=== PATIENT | male | born 1955 | race Caucasian/White ===

== ENCOUNTER → 2018-03-26 17:57 | Outpatient (CLI) | payer OTHER, SELFPAY ==
--- NOTE | 2018-03-26 18:00 | DI.RAD.S_ITS ---
PROCEDURE: XR CHEST 2V INDICATIONS: cough TECHNIQUE: 2 views of the chest were acquired. COMPARISON: [facility], , CHEST 1 VIEW, 01/22/2017, 14:40. FINDINGS: Surgical changes and devices: None. Lungs and pleura: No pleural effusions or pneumothorax. Lungs are clear. Mediastinum: Mediastinal contours are normal. Heart size is normal. Bones and chest wall: No suspicious bony abnormalities. Soft tissues appear unremarkable. IMPRESSION: No acute cardiopulmonary disease process. Dictated by: Toma Lezama MD, PhD on 03/26/2018 at 18:29 Approved by: Toma Lezama MD, PhD on 03/26/2018 at 18:30
== END ==
PROVIDERS: Family Provider Family Medicine; PCP Family Medicine; Visit Provider Physician Assistant
DX: R05 Cough (principal); R68.89 Other general symptoms and signs
CPT/HCPCS: 71046; 87400

== ENCOUNTER → 2018-03-26 18:00 | Outpatient (CLI) | payer OTHER, SELFPAY ==
[2018-03-26 19:02] LABS: Influenza A and B by PCR Rapid Negative (Negative)
== END ==
PROVIDERS: Family Provider Family Medicine; PCP Family Medicine; Visit Provider Physician Assistant
DX: R68.89 Other general symptoms and signs (principal)
CPT/HCPCS: 87400

== ENCOUNTER → 2018-05-28 14:06 | Outpatient (CLI) | payer OTHER, SELFPAY ==
[2018-05-28 14:41] LABS: Hematocrit 45.6 % (41-53); Hemoglobin 15.7 g/dL (13.5-17.5)
[2018-05-31 01:30] LABS: Albumin 4.5 g/dL (3.6-5.1); Sex Hormone Binding Globulin 27 nmol/L (22-77); Testosterone, Bioavailable 43.9 ng/dL (110.0-575.0); Testosterone, Total 151 ng/dL (250-1100); Testosterone,Free 21.3 pg/mL (46.0-224.0)
== END ==
PROVIDERS: Visit Provider Student in an Organized Health Care Education/Training Program
DX: Z79.890 Hormone replacement therapy (principal); E29.1 Testicular hypofunction
CPT/HCPCS: 36415; 82040; 84270; 84403; 85014; 85018

== ENCOUNTER → 2018-07-26 12:40 | Outpatient (CLI) | payer OTHER, SELFPAY ==
[2018-07-26 13:48] LABS: Vitamin D 25 Hydroxy (D3) 20.9 ng/mL (30.0-100.0)
[2018-07-30 18:33] LABS: Testosterone Total 622 ng/dL (250-1100)
== END ==
PROVIDERS: Family Provider Family Medicine; PCP Student in an Organized Health Care Education/Training Program; Visit Provider Student in an Organized Health Care Education/Training Program
DX: E29.1 Testicular hypofunction (principal)
CPT/HCPCS: 36415; 82306; 84402; 84403

== ENCOUNTER → 2019-01-20 10:30 | Outpatient (CLI) | payer OTHER, SELFPAY ==
--- NOTE | 2019-01-20 10:31 | DI.ECHO.S_ITS ---
[facility] +---------+ : : [address] : [place] : : : : [id number] : : : : Phone: [phone]+ Echocardiogram Report + + :Name: PHILIP CANDELARIO Study Date: 01/20/2019 Height: 73 in : :[facility] Weight: 400 lb: : Gender: Male BSA: 2.9 m2 : :: 1955 Age: 63 yrs : :Reason For Study: Aortic, Ascending Aneurysm : : Performed By: Regine Mcwilliams : :Referring: GISELLE HERRERA : + + Interpretation Summary The left ventricle is mildly dilated. Left ventricular systolic function is normal. The ejection fraction is estimated to be 55-60%. There are no obvious focal wall motion abnormalities noted but poor endocardial definition reduces the sensitivity for the detection of such. The right ventricle is mildly dilated. The right ventricular systolic function is normal. The right ventricular systolic pressure is estimated to be at least 25 mmHg based on an estimated right atrial pressure of 3 mm Hg. The left atrium is moderately dilated. The right atrium is moderately dilated. There is no significant valvular heart disease. The aortic root is mildly dilated. The ascending aorta is moderately enlarged. The aortic arch is moderately enlarged. The arotic root is unchanged at 4.0 cm. The ascending aorta has increased in size from 4.2 cm to 4.7 cm. Prior exam was done on 07-30-14. Procedure: A two-dimensional transthoracic echocardiogram with color flow and Doppler was performed. The study quality was technically difficult. Comparison is made with the echocardiogram of 07-30-14. 1.5 cc of Definity contrast was used to improve image quality. The patient was in atrial fibrillation with heart rates between 72-88 bpm during the exam. Left Ventricle: The left ventricle is mildly dilated. There is normal left ventricular wall thickness. Left ventricular systolic function is normal. The ejection fraction is estimated to be 55-60%. There are no obvious focal wall motion abnormalities noted but poor endocardial definition reduces the sensitivity for the detection of such. Diastolic function could not be accurately assessed due to atrial fibrillation. Right Ventricle: The right ventricle is mildly dilated. The right ventricular systolic function is normal. Atria: The left atrium is moderately dilated. The right atrium is moderately dilated. The interatrial septum is intact with no evidence for an atrial septal defect. Mitral Valve: The mitral valve leaflets appear mildly thickened, but open well. There is trace mitral regurgitation. Aortic Valve: The aortic valve opens well. No aortic regurgitation is present. Tricuspid Valve: The tricuspid valve is normal in structure and function. There is a trace or physiologic amount of tricuspid regurgitation. The right ventricular systolic pressure is estimated to be at least 25 mmHg based on an estimated right atrial pressure of 3 mm Hg. Pulmonic Valve: The pulmonic valve is not well seen, but is grossly normal. There is no pulmonic valvular regurgitation. There is no significant valvular heart disease. Great Vessels: The aortic root is mildly dilated. The ascending aorta is moderately enlarged. The aortic arch is moderately enlarged. The arotic root is unchanged at 4.0 cm. The ascending aorta has increased in size from 4.2 cm to 4.7 cm. Prior exam was done on 07-30-14. The IVC is of normal diameter and collapses greater than 50% with a sniff. This suggests a low right atrial pressure of 3 mm Hg. Pericardium/ Pleura There is no pericardial effusion. There is no pleural effusion. MMode/2D Measurements & Calculations LVIDd: 5.8 cm Ao root diam: 4.0 cm LVIDs: 3.9 cm Aortic Jxn: 3.6 cm FS: 31.6 % asc Aorta Diam: 4.7 cm EPSS: 0.67 cm Ao Arch Diam (Prox Trans): 4.1 cm IVSd: 1.1 cm LVPWd: 1.0 cm LV garza. diameter/BSA (cm/m^2): 2.0 LV sys. diameter/BSA (cm/m^2): 1.4 LA dimension: 5.4 cm RA long axis: 6.5 cm LA A2 area: 33.6 cm2 RA area: 31.3 cm2 LA A4 area: 31.5 cm2 RA vol: 129.3 ml LA length (vol): 7.0 cm RA : 44.8 ml/m2 LA vol: 127.3 ml IVC diam: 1.8 cm LA vol index: 44.1 ml/m2 RVDd major: 7.2 cm RVD1 (basal): 4.5 cm RVD2 (mid): 3.4 cm Doppler Measurements & Calculations Ao V2 max: 99.9 cm/sec MV P1/2t: 64.0 msec Ao V2 mean: 65.9 cm/sec Ao max P.0 mmHg Ao mean P.1 mmHg Ao V2 VTI: 20.1 cm TR max dorian: 235.2 cm/sec MV V2 mean: 56.5 cm/sec TR max P.1 mmHg MV mean P.6 mmHg PA V2 max: 92.2 cm/sec MV V2 VTI: 15.7 cm PA V2 mean: 59.9 cm/sec PA mean P.7 mmHg PA Accel Time: 0.18 sec MV /2t max dorian: 92.3 cm/sec MVA(P1/2t): 3.4 cm2 Reading Physician:06:51 PM
[2019-01-20 15:19] LABS: Hemoglobin A1C% w Est Avg Glu 5.2 % (4.0-6.0)
[2019-01-20 15:20] LABS: Alanine Aminotransferase 60 IU/L (21-72); Albumin 4.7 g/dL (3.5-5.0); Alkaline Phosphatase 91 U/L (38-126); Aspartate Aminotransferase 44 IU/L (17-59); BUN Creatinine Ratio 19.1 (6-22); Bilirubin Direct 0.2 mg/dL (0.0-0.4); Bilirubin Total 3.1 mg/dL (0.2-1.3); Blood Urea Nitrogen 21 mg/dL (9-20); Calcium 9.7 mg/dL (8.4-10.2); Carbon Dioxide 26 mmol/L (22-32); Chloride 103 mmol/L (98-107); Cholesterol 97 mg/dL (140-199); Estimated Glomerular Filt Rate > 60.0 mL/min (>60); Globulin 2.4 g/dL (1.7-4.1); Glucose 97 mg/dL (80-110); HDL Cholesterol 25 mg/dL (40-60); HEMOLYSIS < 15 (0-50); LDL Cholesterol Calculated 29 mg/dL (<100); Potassium 4.9 mmol/L (3.4-5.1); Sodium 142 mmol/L (137-145); Total Protein 7.1 g/dL (6.3-8.2); Triglycerides 213 mg/dL (35-150)
[2019-01-20 15:27] LABS: Prealbumin 27.1 mg/dL (17.6-36.0)
[2019-01-20 15:48] LABS: Vitamin D 25 Hydroxy (D3) 22.9 ng/mL (30.0-100.0)
== END ==
PROVIDERS: PCP Student in an Organized Health Care Education/Training Program; Visit Provider Student in an Organized Health Care Education/Training Program
DX: I71.2 Thoracic aortic aneurysm, without rupture (principal); E66.01 Morbid (severe) obesity due to excess calories; E80.6 Other disorders of bilirubin metabolism; I10 Essential (primary) hypertension; I50.30 Unspecified diastolic (congestive) heart failure; E55.9 Vitamin D deficiency, unspecified; E78.00 Pure hypercholesterolemia, unspecified; I25.10 Atherosclerotic heart disease of native coronary artery without angina pectoris
CPT/HCPCS: 36415; 80053; 80061; 82248; 82306; 83036; 84134; 93306; Q9957

== ENCOUNTER → 2019-01-29 11:50 | Outpatient (CLI) | payer OTHER, SELFPAY ==
--- NOTE | 2019-01-29 11:54 | DIET.PN ---
Addendum entered by Mary Brady 02/04/19 17:00: Morbid obesity r/t emotional eating aeb BMI 60, accelerated wt gain associated c times of stress (family , injury), elevated triglycerides (213), and hypertension. Original Note: Dietary Progress Note Assessment: 63y M requesting help with weight loss. [employer] reccs high fat, high pro diet limiting carbs and sugar, has anyerusim and doesn't want to . Cannot get good picture of heart due to weight. Pt has been seeing natural medicine doctor on [place] which is motivating him to seek drapery counselor with a dietitian to reduce inflammation and lose weight. Not interested in bariatric surgery. Whole family is bigger in size. Admits to eating candy bars, bored/emotional/depressed related eating with added barrier of limited mobility. Drastically changed diet 1mo ago reflected below: HT: 6'1 WT: 455# Wt Hx: in 180-220#, 90s 280#, 1999s 300#, 2014 had cancer 350#, 2016 hurt foot, blood clot, stroke, heart attack BMI: 60.0 Labs: cholesterol low, Triglycerides 213 (H), Vitamin D 22 (L) Usual intake past month: 5:30-6am wakes B: cup coffee black, a couple eggs w an avocado (or 1.5 c instant oatmeal, brown sugar or fruit-berries, tsp butter) L (1230): cooks self for 100 servings at [facility], okayed by RD- 4oz lemon pepper cod, yam c butter and brown sugar, mixed veg, sliced apples D (6-7): Dinner looks like lunch per meals [employer] [place] in evening Some emotional eating, r/t depression and passing away. using [employer] for food tracking. Tries to stick to 2,000kcal. Interventions: Encouraged pts new dietary changes. Recc pt double veg portions but otherwise keep things the same for now since changes were so recent. Discussed inflammation and the anti-inflammatory diet. Pt will start using more anti-inflammatory herbs and spices in cooking, increase vegetable intake, focus on healthy fats. Discussed hunger/satiety scale: pt took scale with and will assess hunger levels, eating when a 3 and stopping when a 7. Pt will track foods and f/u c RD in 1mo to reassess and continue plan. Monitoring/Evaluations: monitor wt, continue problem solving barriers, work on physical activity plan
== END ==
PROVIDERS: PCP Student in an Organized Health Care Education/Training Program; Visit Provider Student in an Organized Health Care Education/Training Program
DX: E66.01 Morbid (severe) obesity due to excess calories (principal); Z68.44 Body mass index [BMI] 60.0-69.9, adult; I10 Essential (primary) hypertension; E78.5 Hyperlipidemia, unspecified
CPT/HCPCS: 97802

== ENCOUNTER → 2019-08-19 14:34 | Outpatient (CLI) | payer OTHER, SELFPAY ==
[2019-08-19 16:36] LABS: BUN Creatinine Ratio 29.8 (6-22); Blood Urea Nitrogen 25 mg/dL (9-20); Calcium 9.3 mg/dL (8.4-10.2); Carbon Dioxide 20 mmol/L (22-32); Chloride 107 mmol/L (98-107); Cholesterol 105 mg/dL (140-199); Estimated Glomerular Filt Rate > 60.0 mL/min (>60); Glucose 79 mg/dL (80-110); HDL Cholesterol 25 mg/dL (40-60); HEMOLYSIS < 15 (0-50); LDL Cholesterol Calculated 37 mg/dL (<100); Potassium 4.8 mmol/L (3.4-5.1); Sodium 137 mmol/L (137-145); Triglycerides 213 mg/dL (35-150)
[2019-08-19 16:46] LABS: Hemoglobin A1C% w Est Avg Glu 5.5 % (4.0-6.0)
[2019-08-19 17:05] LABS: TSH w/ Reflex to FT4 2.52 uIU/mL (0.47-4.68)
[2019-08-19 17:17] LABS: Vitamin D 25 Hydroxy (D3) 21.3 ng/mL (30.0-100.0)
== END ==
PROVIDERS: PCP Student in an Organized Health Care Education/Training Program; Referring Provider Student in an Organized Health Care Education/Training Program; Visit Provider Student in an Organized Health Care Education/Training Program
DX: E55.9 Vitamin D deficiency, unspecified (principal); E66.01 Morbid (severe) obesity due to excess calories; I10 Essential (primary) hypertension; I50.30 Unspecified diastolic (congestive) heart failure; R63.5 Abnormal weight gain
CPT/HCPCS: 36415; 80048; 80061; 82306; 83036; 84443

== ENCOUNTER → 2019-08-20 10:20 | Outpatient (CLI) | payer OTHER, SELFPAY ==
[2019-08-20 11:50] LABS: Cortisol Random 0.79 ug/dL
== END ==
PROVIDERS: PCP Student in an Organized Health Care Education/Training Program; Referring Provider Student in an Organized Health Care Education/Training Program; Visit Provider Student in an Organized Health Care Education/Training Program
DX: E88.1 Lipodystrophy, not elsewhere classified (principal)
CPT/HCPCS: 36415; 82533

== ENCOUNTER → 2020-02-03 13:20 | Outpatient (CLI) | payer OTHER, SELFPAY ==
--- NOTE | 2020-02-03 13:30 | DI.ECHO.S_ITS ---
Echocardiogram Report + + :Name: PHILIP CANDELARIO Study Date: 02/03/2020 Height: 73 in : :[facility] Weight: 490 lb : : Gender: Male BSA: 3.1 m2 : :: 1955 Age: 64 yrs BP: 153/102 mmHg: :Reason For Study: SHORTNESS OF BREATH : : Performed By: Baylee Rico : :Referring: JOHANNA MILLAN : + + Interpretation Summary Left ventricular ejection fraction is estimated to be 60 +/- 5%. Ejection fraction has not changed. The left ventricle is grossly normal size. The right ventricle is mildly dilated. The right ventricular systolic function is normal. Pulmonary artery pressures cannot be estimated because of the lack of a measurable TR jet velocity. The left atrium is mildly dilated. Right atrial size is normal. There is no significant valvular heart disease. The aortic root is mildly dilated. The ascending aorta is moderate-severely enlarged and has slightly increased since prior study. The aortic arch is moderately enlarged. Procedure: A two-dimensional transthoracic echocardiogram with color flow and Doppler was performed. The study quality was technically adequate. Comparison is made with the echocardiogram of 01/20/2019. A contrast injection of Definity was performed to improve assessment of LV function. Contrast was injected into an intravenous site in the right arm. The patient was in atrial fibrillation with heart rates between 91-107 bpm during the exam. Left Ventricle: There is mild concentric left ventricular hypertrophy. The left ventricle is grossly normal size. Left ventricular ejection fraction is estimated to be 60 +/- 5%. Diastolic function could not be accurately assessed due to atrial fibrillation. Right Ventricle: The right ventricle is mildly dilated. The right ventricular systolic function is normal. Atria: The left atrium is mildly dilated. Right atrial size is normal. There is no Doppler evidence for an interatrial shunt. Mitral Valve: The mitral valve is normal in structure and function. There is no mitral regurgitation noted. Aortic Valve: The aortic valve is trileaflet. There is no aortic valve stenosis. No aortic regurgitation is present. Tricuspid Valve: The tricuspid valve is not well visualized, but is grossly normal. There is a trace or physiologic amount of tricuspid regurgitation. Pulmonary artery pressures cannot be estimated because of the lack of a measurable TR jet velocity. Pulmonic Valve: The pulmonic valve is not well seen, but is grossly normal. There is no pulmonic valvular regurgitation. There is no significant valvular heart disease. Great Vessels: The aortic root is mildly dilated. The ascending aorta is moderate-severely enlarged. The aortic arch is moderately enlarged. The inferior vena cava was not visualized. Pericardium/ Pleura There is no pericardial effusion. There is no pleural effusion. MMode/2D Measurements & Calculations LVIDd: 5.4 cm LVOT diam: 2.5 cm LVIDs: 3.8 cm Ao root diam: 4.0 cm FS: 29.2 % asc Aorta Diam: 5.0 cm EPSS: 0.97 cm Ao Arch Diam (Prox Trans): 3.9 cm IVSd: 1.1 cm LVPWd: 1.2 cm LV garza. diameter/BSA (cm/m^2): 1.7 LV sys. diameter/BSA (cm/m^2): 1.2 LA A2 area: 28.1 cm2 RA long axis: 6.0 cm LA A4 area: 30.2 cm2 RA area: 24.0 cm2 LA length (vol): 6.6 cm RA vol: 82.2 ml LA vol: 109.3 ml RA : 26.1 ml/m2 LA vol index: 34.7 ml/m2 RVD1 (basal): 4.3 cm TAPSE: 2.3 cm Doppler Measurements & Calculations Ao V2 max: 114.6 cm/sec LVOT Max Geovanni: 91.3 cm/sec Ao V2 mean: 82.9 cm/sec LV V1 max P.3 mmHg Ao max P.3 mmHg LV V1 VTI: 16.5 cm Ao mean P.0 mmHg NILESH(I,D): 4.4 cm2 Ao V2 VTI: 18.7 cm NILESH(V,D): 4.0 cm2 sev ratio: 0.88 NILESH indexed to BSA (cm^2/m^2): 1.4 MV E max geovanni: 98.9 cm/sec PA pr(Accel): 27.6 mmHg MV A max geovanni: 1.2 cm/sec MV E/A: 84.7 Med Peak E' Geovanni: 11.1 cm/sec E/E' med: 8.9 Lat Peak E' Geovanni: 11.3 cm/sec E/E' lat: 8.8 E/e' average: 8.9 MV dec time: 0.19 sec SV(LVOT): 83.0 ml Reading Physician:04:00 PM
== END ==
PROVIDERS: PCP Student in an Organized Health Care Education/Training Program; Referring Provider Internal Medicine Cardiovascular Disease; Visit Provider Internal Medicine Cardiovascular Disease
DX: I77.810 Thoracic aortic ectasia (principal); R06.02 Shortness of breath
CPT/HCPCS: C8929; Q9957

== ENCOUNTER → 2020-03-15 12:06 | Outpatient (CLI) | payer OTHER, SELFPAY ==
[2020-03-15 14:36] LABS: Add Manual Diff / Slide Review NO; Basophils Absolute Auto 100 /uL (0-100); Basophils Percent Auto 0.6 % (0-2); Eosinophils Absolute Auto 200 /uL (0-450); Eosinophils Percent Auto 1.9 % (2-4); Hematocrit 55.8 % (41-53); Hemoglobin 18.2 g/dL (13.5-17.5); Lymphocytes Absolute Auto 1500 /uL (1100-4500); Lymphocytes Percent Auto 13.5 % (25-40); Mean Corpuscular HGB Conc 32.6 % (30-36); Mean Corpuscular Hemoglobin 28.5 PG (26-34); Mean Corpuscular Volume 87.6 fL (80-100); Monocytes Absolute Auto 1200 /uL (0-900); Monocytes Percent Auto 10.6 % (3-14); Neutrophils Absolute Auto 8300 /uL (1500-7000); Neutrophils Percent Auto 73.4 % (50-75); Platelet Count 233 X10^3/uL (150-400); Red Blood Cell Count 6.37 X10^6/uL (4.5-5.9); Red Cell Distribution Width 16.2 % (11.6-14.8); White Blood Cell Count 11.3 X10^3/uL (4.5-11.0)
[2020-03-15 14:43] LABS: Prothrombin Time 11.5 SECONDS (10.1-12.7)
[2020-03-15 14:45] LABS: PTT Partial Thromboplastin Tim 32 SECONDS (26.4-36.2)
[2020-03-15 14:57] LABS: Hemoglobin A1C% w Est Avg Glu 5.6 % (4.0-6.0)
[2020-03-15 14:58] LABS: Alanine Aminotransferase 67 IU/L (<50); Albumin 4.7 g/dL (3.5-5.0); Albumin Globulin Ratio 1.7 (1.0-2.8); Alkaline Phosphatase 114 U/L (38-126); Aspartate Aminotransferase 59 IU/L (17-59); BUN Creatinine Ratio 22.5 (6-22); Bilirubin Total 4.8 mg/dL (0.2-1.3); Blood Urea Nitrogen 23 mg/dL (9-20); Calcium 9.2 mg/dL (8.4-10.2); Carbon Dioxide 22 mmol/L (22-32); Chloride 105 mmol/L (98-107); Cholesterol 105 mg/dL (140-199); Estimated Glomerular Filt Rate > 60.0 mL/min (>60); Globulin 2.8 g/dL (1.7-4.1); Glucose 83 mg/dL (80-110); HDL Cholesterol 25 mg/dL (40-60); HEMOLYSIS 33 (0-50); LDL Cholesterol Calculated 33 mg/dL (<100); Potassium 4.8 mmol/L (3.4-5.1); Sodium 137 mmol/L (137-145); Total Protein 7.5 g/dL (6.3-8.2); Triglycerides 236 mg/dL (35-150)
[2020-03-15 15:24] LABS: Iron 145 ug/dL (49-181)
[2020-03-15 15:28] LABS: Ferritin 31 ng/mL (18-464)
[2020-03-15 15:34] LABS: Total Iron Binding Capacity 457 ug/dL (261-462)
[2020-03-15 15:44] LABS: Free T3, Triiodothyronine Free 3.16 pg/mL (2.77-5.27)
[2020-03-15 15:58] LABS: Folate 18.9 ng/mL (2.76-20.0); Thyroid Stimulating Hormone 2.81 uIU/mL (0.47-4.68); Vitamin B12 483 pg/mL (239-931)
[2020-03-15 17:05] LABS: Vitamin D 25 Hydroxy (D3) 26.7 ng/mL (30.0-100.0)
[2020-03-18 17:08] LABS: Vitamin B1 240.9 nmol/L (66.5-200.0)
== END ==
PROVIDERS: PCP Student in an Organized Health Care Education/Training Program; Referring Provider Surgery; Visit Provider Surgery
DX: Z01.812 Encounter for preprocedural laboratory examination (principal); Z01.810 Encounter for preprocedural cardiovascular examination; E63.9 Nutritional deficiency, unspecified; E55.9 Vitamin D deficiency, unspecified; E46 Unspecified protein-calorie malnutrition
CPT/HCPCS: 36415; 80053; 80061; 82306; 82607; 82728; 82746; 83036; 83540; 83550; 84425; 84443; 84481; 85025; 85610; 85730

== ENCOUNTER → 2020-07-27 12:54 | Outpatient (CLI) | payer OTHER, SELFPAY ==
[2020-07-27 13:41] LABS: Alanine Aminotransferase 49 IU/L (<50); Albumin 4.4 g/dL (3.5-5.0); Albumin Globulin Ratio 1.6 (1.0-2.8); Alkaline Phosphatase 96 U/L (38-126); Aspartate Aminotransferase 38 IU/L (17-59); BUN Creatinine Ratio 16.3 (6-22); Bilirubin Total 3.5 mg/dL (0.2-1.3); Blood Urea Nitrogen 14 mg/dL (9-20); Calcium 9.4 mg/dL (8.4-10.2); Carbon Dioxide 27 mmol/L (22-32); Chloride 101 mmol/L (98-107); Estimated Glomerular Filt Rate > 60.0 mL/min (>60); Globulin 2.7 g/dL (1.7-4.1); Glucose 95 mg/dL (80-110); HEMOLYSIS < 15 (0-50); Potassium 4.3 mmol/L (3.4-5.1); Sodium 136 mmol/L (137-145); Total Protein 7.1 g/dL (6.3-8.2)
== END ==
PROVIDERS: PCP Student in an Organized Health Care Education/Training Program; Referring Provider Surgery; Visit Provider Surgery
DX: Z98.84 Bariatric surgery status (principal); K90.9 Intestinal malabsorption, unspecified
CPT/HCPCS: 36415; 80053

== ENCOUNTER → 2020-09-03 10:27 | Outpatient (CLI) | payer OTHER, SELFPAY ==
[2020-09-08 08:51] LABS: Heparin Anti Xa LMWH 0.93 IU/mL (.)
== END ==
PROVIDERS: PCP Student in an Organized Health Care Education/Training Program; Referring Provider Internal Medicine; Visit Provider Internal Medicine
DX: I82.90 Acute embolism and thrombosis of unspecified vein (principal)
CPT/HCPCS: 36415; 85520

== ENCOUNTER → 2020-09-10 13:06 | Outpatient (CLI) | payer OTHER, SELFPAY ==
[2020-09-14 02:50] LABS: Heparin Anti Xa LMWH 1.05 IU/mL (.)
== END ==
PROVIDERS: PCP Student in an Organized Health Care Education/Training Program; Referring Provider Internal Medicine; Visit Provider Internal Medicine
DX: I82.90 Acute embolism and thrombosis of unspecified vein (principal)
CPT/HCPCS: 36415; 85520

== ENCOUNTER → 2020-09-17 12:38 | Outpatient (CLI) | payer OTHER, SELFPAY | PROVIDERS: PCP Student in an Organized Health Care Education/Training Program; Referring Provider Internal Medicine; Visit Provider Internal Medicine | DX: I82.90 Acute embolism and thrombosis of unspecified vein (principal) | CPT/HCPCS: 36415; 85520 ==

== ENCOUNTER → 2020-09-24 12:33 | Outpatient (CLI) | payer OTHER, SELFPAY ==
[2020-09-28 18:36] LABS: Heparin Anti Xa LMWH 0.86 IU/mL (.)
== END ==
PROVIDERS: PCP Student in an Organized Health Care Education/Training Program; Referring Provider Internal Medicine; Visit Provider Internal Medicine
DX: I82.90 Acute embolism and thrombosis of unspecified vein (principal)
CPT/HCPCS: 36415; 85520

== ENCOUNTER → 2020-10-01 12:14 | Outpatient (CLI) | payer OTHER, SELFPAY ==
[2020-10-05 17:44] LABS: Heparin Anti Xa LMWH 0.64 IU/mL (.)
== END ==
PROVIDERS: PCP Student in an Organized Health Care Education/Training Program; Referring Provider Internal Medicine; Visit Provider Internal Medicine
DX: I82.90 Acute embolism and thrombosis of unspecified vein (principal)
CPT/HCPCS: 36415; 85520

== ENCOUNTER → 2020-10-08 12:14 | Outpatient (CLI) | payer OTHER, SELFPAY ==
[2020-10-13 15:04] LABS: Heparin Anti Xa LMWH 0.79 IU/mL (.)
== END ==
PROVIDERS: PCP Student in an Organized Health Care Education/Training Program; Referring Provider Internal Medicine; Visit Provider Internal Medicine
DX: I82.90 Acute embolism and thrombosis of unspecified vein (principal)
CPT/HCPCS: 36415; 85520

== ENCOUNTER → 2020-10-15 11:13 | Outpatient (CLI) | payer OTHER, SELFPAY ==
[2020-10-15 12:06] LABS: Alanine Aminotransferase 82 IU/L (<50); Albumin 4.5 g/dL (3.5-5.0); Albumin Globulin Ratio 1.9 (1.0-2.8); Alkaline Phosphatase 120 U/L (38-126); Aspartate Aminotransferase 55 IU/L (17-59); BUN Creatinine Ratio 31.8 (6-22); Blood Urea Nitrogen 21 mg/dL (9-20); Calcium 9.7 mg/dL (8.4-10.2); Carbon Dioxide 22 mmol/L (22-32); Chloride 107 mmol/L (98-107); Estimated Glomerular Filt Rate > 60.0 mL/min (>60); Globulin 2.4 g/dL (1.7-4.1); Glucose 111 mg/dL (80-110); HEMOLYSIS < 15 (0-50); Potassium 3.7 mmol/L (3.4-5.1); Sodium 139 mmol/L (137-145); Total Protein 6.9 g/dL (6.3-8.2)
== END ==
PROVIDERS: PCP Student in an Organized Health Care Education/Training Program; Referring Provider Surgery; Visit Provider Surgery
DX: K90.9 Intestinal malabsorption, unspecified (principal); Z98.84 Bariatric surgery status; I82.90 Acute embolism and thrombosis of unspecified vein
CPT/HCPCS: 36415; 80053; 85520

== ENCOUNTER → 2020-10-22 11:49 | Outpatient (CLI) | payer OTHER, SELFPAY | PROVIDERS: PCP Student in an Organized Health Care Education/Training Program; Referring Provider Internal Medicine; Visit Provider Internal Medicine | DX: I82.90 Acute embolism and thrombosis of unspecified vein (principal) | CPT/HCPCS: 36415; 85520 ==

== ENCOUNTER → 2020-11-17 14:19 | Outpatient (CLI) | payer OTHER, SELFPAY ==
[2020-11-21 11:04] LABS: Heparin Anti Xa LMWH 0.92 IU/mL (.)
== END ==
PROVIDERS: PCP Student in an Organized Health Care Education/Training Program; Referring Provider Internal Medicine; Visit Provider Internal Medicine
DX: I82.90 Acute embolism and thrombosis of unspecified vein (principal)
CPT/HCPCS: 36415; 85520

== ENCOUNTER → 2020-11-23 15:29 | Outpatient (CLI) | payer OTHER, SELFPAY ==
--- NOTE | 2020-11-23 15:31 | DI.RAD.S_ITS ---
PROCEDURE: XR SACRUM COCCYX MIN 2V INDICATIONS: Coccygeal pain after fall TECHNIQUE: 3 views of the sacrum and coccyx acquired. COMPARISON: None. FINDINGS: Bones: No fractures or dislocations. No suspicious bony lesions. Soft tissues: Visualized bowel gas pattern is normal. No suspicious soft tissue densities. IMPRESSION: No definite trauma found. MR scanning does provide a more accurate method for detecting bone bruising and nondisplaced fractures and could be performed if clinically warranted. Dictated by: Molina Farnsworth M.D. on 11/23/2020 at 16:16 Approved by: Molina Farnsworth M.D. on 11/23/2020 at 16:17
== END ==
PROVIDERS: PCP Student in an Organized Health Care Education/Training Program; Referring Provider Student in an Organized Health Care Education/Training Program; Visit Provider Student in an Organized Health Care Education/Training Program
DX: M53.3 Sacrococcygeal disorders, not elsewhere classified (principal); G89.29 Other chronic pain
CPT/HCPCS: 72220

== ENCOUNTER → 2020-12-16 15:25 | Outpatient (CLI) | payer OTHER, SELFPAY ==
[2020-12-20 01:37] LABS: Heparin Anti Xa LMWH 0.78 IU/mL (.)
== END ==
PROVIDERS: Referring Provider Internal Medicine; Visit Provider Internal Medicine
DX: I82.90 Acute embolism and thrombosis of unspecified vein (principal)
CPT/HCPCS: 36415; 85520

== ENCOUNTER → 2020-12-22 11:05 | Outpatient (CLI) | payer OTHER, SELFPAY ==
[2021-01-03 10:40] LABS: Testosterone Free 11.59 ng/dL (5.00-21.00); Testosterone Total 143.1 ng/dL (264.0-916.0)
== END ==
PROVIDERS: PCP Student in an Organized Health Care Education/Training Program; Referring Provider Student in an Organized Health Care Education/Training Program; Visit Provider Student in an Organized Health Care Education/Training Program
DX: E29.1 Testicular hypofunction (principal)
CPT/HCPCS: 36415; 84402; 84403

== ENCOUNTER → 2021-01-23 10:56 | Outpatient (CLI) | payer OTHER, SELFPAY ==
[2021-01-25 18:27] LABS: Heparin Anti Xa LMWH 0.88 IU/mL (.)
== END ==
PROVIDERS: PCP Student in an Organized Health Care Education/Training Program; Referring Provider Internal Medicine; Visit Provider Internal Medicine
DX: I82.90 Acute embolism and thrombosis of unspecified vein (principal)
CPT/HCPCS: 36415; 85520

== ENCOUNTER → 2021-02-25 10:21 | Outpatient (CLI) | payer OTHER, SELFPAY ==
[2021-02-25 11:17] LABS: Add Manual Diff / Slide Review NO; Basophils Absolute Auto 100 /uL (0-100); Basophils Percent Auto 1.4 % (0-2); Eosinophils Absolute Auto 100 /uL (0-450); Eosinophils Percent Auto 2.8 % (2-4); Hematocrit 29.4 % (41-53); Hemoglobin 9.4 g/dL (13.5-17.5); Lymphocytes Absolute Auto 1100 /uL (1100-4500); Lymphocytes Percent Auto 21.6 % (25-40); Mean Corpuscular HGB Conc 31.9 % (30-36); Mean Corpuscular Hemoglobin 24.1 PG (26-34); Mean Corpuscular Volume 75.6 fL (80-100); Monocytes Absolute Auto 500 /uL (0-900); Monocytes Percent Auto 8.9 % (3-14); Neutrophils Absolute Auto 3400 /uL (1500-7000); Neutrophils Percent Auto 65.3 % (50-75); Platelet Count 279 X10^3/uL (150-400); Red Blood Cell Count 3.89 X10^6/uL (4.5-5.9); Red Cell Distribution Width 17.2 % (11.6-14.8); White Blood Cell Count 5.2 X10^3/uL (4.5-11.0)
[2021-02-25 12:02] LABS: Alanine Aminotransferase 27 IU/L (<50); Albumin 4.2 g/dL (3.5-5.0); Alkaline Phosphatase 80 U/L (38-126); Aspartate Aminotransferase 26 IU/L (17-59); Bilirubin Total 2.9 mg/dL (0.2-1.3); Blood Urea Nitrogen 20 mg/dL (9-20); Calcium 9.1 mg/dL (8.4-10.2); Carbon Dioxide 24 mmol/L (22-32); Chloride 109 mmol/L (98-107); Cholesterol 93 mg/dL (140-199); Estimated Glomerular Filt Rate > 60.0 mL/min (>60); Globulin 2.1 g/dL (1.7-4.1); Glucose 93 mg/dL (80-110); HDL Cholesterol 33 mg/dL (40-60); HEMOLYSIS < 15 (0-50); LDL Cholesterol Calculated 38 mg/dL (<100); Potassium 4.3 mmol/L (3.4-5.1); Sodium 139 mmol/L (137-145); Total Protein 6.3 g/dL (6.3-8.2); Triglycerides 109 mg/dL (35-150)
[2021-02-25 12:04] LABS: Hemoglobin A1C% w Est Avg Glu 5.4 % (4.0-6.0)
[2021-02-25 12:12] LABS: Total Iron Binding Capacity 433 ug/dL (261-462)
[2021-02-25 12:22] LABS: Iron < 10 ug/dL (49-181)
[2021-02-25 12:23] LABS: Percent Iron Saturation < 2 % (20-50); Vitamin D 25 Hydroxy (D3) 34.5 ng/mL (30.0-100.0)
[2021-02-25 12:36] LABS: Ferritin 7 ng/mL (18-464)
[2021-02-25 13:07] LABS: Folate 4.9 ng/mL (2.76-20.0); Vitamin B12 332 pg/mL (239-931)
[2021-02-28 00:36] LABS: Vitamin B1 109.9 nmol/L (66.5-200.0)
== END ==
PROVIDERS: PCP Student in an Organized Health Care Education/Training Program; Referring Provider Surgery; Visit Provider Surgery
DX: E63.9 Nutritional deficiency, unspecified (principal); K90.9 Intestinal malabsorption, unspecified; Z98.84 Bariatric surgery status
CPT/HCPCS: 36415; 80053; 80061; 82306; 82607; 82728; 82746; 83036; 83540; 83550; 84425; 84443; 85025

== ENCOUNTER 2021-03-25 08:29 | Emergency (ER) | payer OTHER, SELFPAY ==
[2021-03-25] VITALS (10 sets, daily range): BP systolic 118–128; BP diastolic 66–81; PULSE 82–95; RESP 16–23; TEMP 36.5–36.9; O2SAT 97–100; BMI 47.5
--- NOTE | 2021-03-25 08:41 | DI.CT.S_ITS ---
PROCEDURE: CT KIDNEY URETER BLADDER (KUB) INDICATIONS: severe R flank TECHNIQUE: Axial sections were acquired from the lung bases to the pubic symphysis. Coronal and sagittal reformats were performed. For radiation dose reduction, the following was used: automated exposure control, adjustment of mA and/or kV according to patient size. COMPARISON: [facility], CT, ABD/PELVIS W/CON (PNL), 07/15/2014, 10:34. FINDINGS: Image quality: Excellent. Lung bases: Unremarkable. A small hiatal hernia is incidentally noted. Heart: No significant findings. URINARY: Right Kidney: No stones or hydronephrosis. Right Ureter: No hydroureter. Left Kidney: No stones or hydronephrosis. Left Ureter: No hydroureter. Bladder: Normal wall thickness. No stones. ABDOMEN: Liver: Unremarkable. Gallbladder: Apparent layering sludge can be seen within the gallbladder. Biliary ducts: Unremarkable. Pancreas: Unremarkable. Spleen: Unremarkable. Adrenal Glands: Unremarkable. Stomach and Bowel: Bariatric surgery can be seen. Generalized fatty stranding can be seen involving the central mesentery. No dilated loops of small bowel are seen. No significant colonic abnormality is seen. Peritoneum: No abnormal intraperitoneal fluid. No free air. Ventral Wall: A mild periumbilical hernia is seen, containing fat. Subcutaneous nodules can be seen involving the anterior lower abdominal wall. Abdominal Nodes: No enlarged retroperitoneal or mesenteric lymph nodes. Vessels: Aorta and inferior vena cava are normal in size. PELVIS: Pelvic Organs: Unremarkable. Pelvic Nodes: Unremarkable. Miscellaneous: There is a fat containing left inguinal hernia. Bones: Mild levoconvex scoliotic curvature is noted. Age-appropriate bony degenerative changes are seen. The gallbladder is collapsed at the time of this study, which limits its evaluation. IMPRESSION: Negative for stones or hydronephrosis. Generalized fatty stranding can be seen involving the central mesentery, which is likely related to chronic inflammatory change. Subcutaneous nodules can be seen involving the lower anterior abdominal wall. Incidental note is made of: Small hiatal hernia Bariatric surgery Fat containing periumbilical hernia Fat containing right inguinal hernia Dictated by: Juan Campos M.D. on 03/25/2021 at 8:35 Approved by: Juan Campos M.D. on 03/25/2021 at 8:38
[2021-03-25 09:00] LABS: Add Manual Diff / Slide Review NO; Basophils Absolute Auto 100 /uL (0-100); Basophils Percent Auto 1.3 % (0-2); Eosinophils Absolute Auto 100 /uL (0-450); Eosinophils Percent Auto 2.4 % (2-4); Hematocrit 29.5 % (41-53); Hemoglobin 9.5 g/dL (13.5-17.5); Lymphocytes Absolute Auto 1000 /uL (1100-4500); Lymphocytes Percent Auto 17.7 % (25-40); Mean Corpuscular HGB Conc 32.1 % (30-36); Mean Corpuscular Hemoglobin 22.1 PG (26-34); Mean Corpuscular Volume 68.9 fL (80-100); Monocytes Absolute Auto 600 /uL (0-900); Monocytes Percent Auto 10.8 % (3-14); Neutrophils Absolute Auto 3900 /uL (1500-7000); Neutrophils Percent Auto 67.8 % (50-75); Platelet Count 323 X10^3/uL (150-400); Red Blood Cell Count 4.29 X10^6/uL (4.5-5.9); Red Cell Distribution Width 21.1 % (11.6-14.8); White Blood Cell Count 5.7 X10^3/uL (4.5-11.0)
[2021-03-25 09:04] LABS: Prothrombin Time 11.7 SECONDS (10.1-12.7)
[2021-03-25 09:06] LABS: PTT Partial Thromboplastin Tim 36 SECONDS (26.4-36.2)
[2021-03-25 09:08] LABS: Alanine Aminotransferase 32 IU/L (<50); Albumin 4.2 g/dL (3.5-5.0); Albumin Globulin Ratio 1.9 (1.0-2.8); Alkaline Phosphatase 100 U/L (38-126); Aspartate Aminotransferase 32 IU/L (17-59); BUN Creatinine Ratio 20.5 (6-22); Bilirubin Total 2.9 mg/dL (0.2-1.3); Blood Urea Nitrogen 17 mg/dL (9-20); Calcium 8.9 mg/dL (8.4-10.2); Carbon Dioxide 21 mmol/L (22-32); Chloride 108 mmol/L (98-107); Estimated Glomerular Filt Rate > 60.0 mL/min (>60); Globulin 2.2 g/dL (1.7-4.1); Glucose 98 mg/dL (80-110); HEMOLYSIS < 15 (0-50); Potassium 4.2 mmol/L (3.4-5.1); Sodium 138 mmol/L (137-145); Total Protein 6.4 g/dL (6.3-8.2)
--- NOTE | 2021-03-25 09:17 | ED_ITS ---
HPI - Abdominal Pain General Chief Complaint: Abdominal Pain Stated Complaint: Poss kidney issues/blood clots. Sent by Dr Rodríguez Seen by Provider: 03/25/21 08:36 Source: patient Mode of arrival: Wheelchair Limitations: no limitations History of Present Illness HPI narrative: 65-year-old male nonsmoker with extensive medical history including intestinal cancer, prior clots, coronary artery disease, AAA, stroke presents with right flank pain that wraps around his right side that is been present for about the past 10 days. He does not remember how it started and denies any injury, heavy lifting or twisting. He states it is worse when he moves and improves with rest. He denies other symptoms such as numbness, t ingling or weakness. He denies any trouble with moving his bowels or urinary complaints such as dysuria, frequency or urgency. He always feels a bit short of breath and denies any change. He has had no chest pain, cough or relationship with breathing. He denies any medication change. His primary care provider thinks he has a kidney stone and is here for evaluation. Related Data Home Medications Medication Instructions Recorded Confirmed enoxaparin 100 mg/mL subcutaneous 100 mg SUBCUT BID ml 11/23/20 12/22/20 syringe Previous Rx's Medication Instructions Recorded ketoconazole 2 % topical cream 1 applictn TOP DAILY #30 gram 03/14/20 testosterone cypionate 200 mg/mL 200 mg IM Q2W #6 ml 03/29/20 intramuscular oil Oxygen #1 ea 04/04/20 atorvastatin 40 mg tablet 40 mg PO HS #90 tab 06/17/20 generic syringes #10 each 01/10/21 amoxicillin 875 mg-potassium 1 tab PO BID #10 tab 01/26/21 clavulanate 125 mg tablet (Augmentin) valsartan 320 mg tablet 320 mg PO QDAY #90 tab 02/13/21 metoprolol succinate 200 mg 200 mg PO DAILY #90 tab 02/16/21 tablet,extended release 24 hr cyclobenzaprine 10 mg tablet 10 mg PO TID PRN #14 tab 03/25/21 hydrocodone 5 mg-acetaminophen 325 1 tab PO Q4-6H PRN #10 tab 03/25/21 mg tablet Allergies Allergy/AdvReac Type Severity Reaction Status Date / Time adhesive [ADHESIVE] Allergy Severe REDNESS Verified 12/22/20 10:13 AND ITCHING latex Allergy Verified 03/25/21 08:57 ciprofloxacin AdvReac Unknown Aortic Verified 12/22/20 10:13 aneurysm Review of Systems Review of Systems Narrative: GENERAL: Denies chills, fatigue, malaise, fever, sweats. HEENT: Denies sinus pain, ear pain, sore throat, difficulty swallowing, dizziness. RESPIRATORY: Denies dyspnea, cough, wheezing, hemoptysis, sputum. CARDIOVASCULAR: Denies chest pain, palpitations, orthopnea, edema, GASTROINTESTINAL: Denies nausea, vomiting, abdominal pain, diarrhea, constipation, melena. : Denies dysuria, frequency, incontinence, hematuria, urinary retention. MUSCULOSKELETAL: denies weakness, joint pain, or bony pain SKIN: Denies rash, skin lesions, or other NEUROLOGIC: Denies weakness, headache, numbness, change in speech, confusion, seizures, incoordination. PSYCHIATRIC: No concerning psychosocial issues. 12 point review of systems is negative except for those stated above Patient History Medical History Ascending aortic aneurysm (01/29/17) Atrial fibrillation (Unknown) Carpal tunnel syndrome on both sides Coronary artery disease involving [place] coronary artery of [place] heart without angina pectoris (01/29/17) Diastolic congestive heart failure (01/29/17) Essential hypertension (08/04/15) Fatigue (08/04/15) Glaucoma (06/06/17) Herpes (Unknown) History of colon cancer (Unknown) History of malignant neoplasm of colon (08/04/15) History of stroke (01/29/17) Hyperlipemia (Unknown) Hypertension (Unknown) Left ankle pain (01/17/16) Left foot pain (01/17/16) Left wrist pain (01/17/16) Morbid obesity with BMI of 60.0-69.9, adult Obesity hypoventilation syndrome Obstructive sleep apnea syndrome (08/11/14) Paroxysmal atrial fibrillation (01/29/17) Primary osteoarthritis of left knee (08/04/15) Pure hypercholesterolemia (08/04/15) Right knee pain (01/17/16) Stroke (Unknown) Thrombus Work related injury Surgical History Hx of cardiac catheterization (01/2017) Hx of colectomy (07/2014) Family History Father No problems noted. Mother Cancer Social History Smoking Status: Never smoker alcohol intake: never substance use type: does not use Smoking Status: Never smoker Substance Use Type: does not use Exam Narrative Exam Narrative: GENERAL: [65 year old patient appears stated age. Well-developed patient, in moderate distress, obviously uncomfortable, moving slowly in requiring some assistance getting out of the wheelchair HEAD: Atraumatic. Normocephalic. EYES: Pupils equal round and reactive. Extraocular motions intact. No scleral icterus. No injection or drainage. ENT: Nose without bleeding, purulent drainage. Throat without erythema, tonsillar hypertrophy or exudate. Airway patent. NECK: Trachea midline. Non tender CARDIOVASCULAR: Regular rate and rhythm without murmurs, gallops, or rubs. RESPIRATORY: Clear to auscultation. Breath sounds equal bilaterally. No wheezes, rales, or rhonchi. GASTROINTESTINAL: Abdomen soft, non-tender, nondistended. EXTREMITIES: No edema or joint tenderness. BACK: Right posterior flank tender to palpation, no swelling, redness or erythema noted NEURO: AOx3. SKIN: No rash or erythema of visible areas Initial Vital Signs Initial Vital Signs: Vital Signs Pulse Rate 95 H 03/25/21 08:40 Blood Pressure 128/81 03/25/21 08:40 Pulse Oximetry 100 03/25/21 08:40 Course Orders Ordered: Discontinued Medications Lidocaine (Lidocaine Patch 1 Each Adh..Patch) 1 each TOP NOW ONE Stop: 03/25/21 11:22 Last Admin: 03/25/21 11:26 Dose: 1 each Documented by: FROY Lidocaine (Remove Lidocaine Patch) 1 each TOP BEDTIME CELE Vital Signs Vital signs: Vital Signs - 8 hr 03/25/21 08:40 03/25/21 08:57 03/25/21 09:00 Temperature 98.4 F Pulse Rate 95 H 89 86 Respiratory Rate 23 18 Blood Pressure 128/81 128/81 Pulse Oximetry 100 100 98 03/25/21 09:30 03/25/21 10:22 Temperature 97.7 F Pulse Rate 89 Respiratory Rate 19 Blood Pressure Pulse Oximetry 97 MDM - Abdominal Pain Lab Data Result diagrams: 03/25/21 08:45 03/25/21 08:45 Labs: Lab Results 03/25/21 03/25/21 03/25/21 Range/Units 08:45 08:45 08:45 WBC 5.7 (4.5-11.0) X10^3/uL RBC 4.29 L (4.5-5.9) X10^6/uL Hgb 9.5 L (13.5-17.5) g/dL Hct 29.5 L (41-53) % MCV 68.9 L (80-100) fL MCH 22.1 L (26-34) PG MCHC 32.1 (30-36) % RDW 21.1 H (11.6-14.8) % Plt Count 323 (150-400) X10^3/uL Neut % (Auto) 67.8 (50-75) % Lymph % (Auto) 17.7 L (25-40) % Iron % (Auto) 10.8 (3-14) % Eos % (Auto) 2.4 (2-4) % Baso % (Auto) 1.3 (0-2) % Neut # (Auto) 3900 (6713-9126) /uL Lymph # (Auto) 1000 L (0972-7845) /uL Iron # (Auto) 600 (0-900) /uL Eos # (Auto) 100 (0-450) /uL Baso # (Auto) 100 (0-100) /uL RBC Morphology Not Reportable Hypochromasia 1+ H Anisocytosis 2+ H Microcytosis 2+ H PT 11.7 (10.1-12.7) SECONDS INR 1.0 (0.9-1.3) APTT 36 (26.4-36.2) SECONDS Sodium 138 (137-145) mmol/L Potassium 4.2 (3.4-5.1) mmol/L Chloride 108 H (98-107) mmol/L Carbon Dioxide 21 L (22-32) mmol/L BUN 17 (9-20) mg/dL Creatinine 0.83 (0.66-1.25) mg/dL Estimated GFR > 60.0 (>60) mL/min BUN/Creatinine Ratio 20.5 (6-22) Glucose 98 (80-110) mg/dL Calcium 8.9 (8.4-10.2) mg/dL Total Bilirubin 2.9 H (0.2-1.3) mg/dL AST 32 (17-59) IU/L ALT 32 (<50) IU/L Alkaline Phosphatase 100 (38-126) U/L Total Protein 6.4 (6.3-8.2) g/dL Albumin 4.2 (3.5-5.0) g/dL Globulin 2.2 (1.7-4.1) g/dL Albumin/Globulin Ratio 1.9 (1.0-2.8) Point of care testing: Urine Dip Bedside Urine Glucose Negative Bedside Urine Bilirubin - Negative Bedside Urine Ketone - Negative Urine Specific [place] 1.015 Bedside Urine Occult Blood - Negative Bedside Urine pH 6.0 Bedside Urine Protein - Negative Bedside Urine Urobilinogen +/- 1mg Bedside Urine Nitrite - Negative Bedside Urine Leukocytes - Negative Esterase Imaging Data CT scan - abdomen/pelvis: Radiologist's Impression: Cecilio Miles??65??M??1955 ? Allergy/Adv: adhesive, latex, ciprofloxacin (More??) Close Chest/Abdomen/Pelvis CTA (Signed) Juan Campos - 03/25/21 Abdomen/Pelvis CT (Addendum) Juan Campos - 03/25/21 Sacrum and Coccyx X-Ray (Signed) Molina Farnsworth - 11/23/20 Echocardiogram Ultrasound (Cancelled) 02/03/20 DI Result CC 02/05/19 Echocardiogram Ultrasound (Signed) Vaughn De - 01/20/19 Chest X-Ray (Signed) Toma Lezama - 03/26/18 DI Result CC 12/31/17 Radiology - Historical 01/22/17 Radiology - Historical 01/22/17 Radiology - Historical 01/22/17 Launch?[place] [address] CT Scan Report Signed Patient: Cecilio Miles MR#: [id number] : 1955 Acct:[id number] Age/Sex: 65 / M Date of Service: 03/25/21 Loc: ED Accession Number: [id number] ?? Procedure: CT angio chest abdomen pelvis Ordering Provider: Randolph Jang D.O. PROCEDURE:? CT ANGIO CHEST ABDOMEN PELVIS ? INDICATIONS:? severe back pain, radiation, history of aneurysm, on anticoagulation ? TECHNIQUE:? Precontrast 5 mm thick sections through the chest.? Noncontrast images of the abdomen pelvis performed earlier in the day.? After the administration of intravenous contrast, 2.5 mm thick sections again acquired from the lung apices to the iliac crests.? Maximum intensity projection (MIP) oblique sagittal and coronal reformats were then acquired.? For radiation dose reduction, the following was used:? automated exposure control.? ? COMPARISON:? [facility], CT, CT KIDNEY URETER BLADDER (KUB), 03/25/2021, 9:18. ? FINDINGS:? Image quality:? Excellent.? ? AORTA:? On precontrast imaging, no findings of mural hematomas can be seen.? On postcontrast imaging, no findings of dissection are seen.? There is mild aneurysmal dilatation seen of the ascending aorta, measuring 4.9 cm transversely, as measured on coronal images.? The aortic arch is likely Raúl mildly aneurysmal at 3.3 cm.? The descending thoracic aorta measures at the upper limits of normal at 3 cm. ? The abdominal aorta demonstrates normal caliber.? The visualized lower extremity arteries are likewise within normal limits. ? CHEST:? Lungs and pleura:? No acute airspace opacities.? No pleural effusions or pneumothorax.? Central and peripheral airways are patent and normal in caliber.? ? Mediastinum:? Heart size is mildly enlarged.? No pericardial effusion.? No mediastinal or hilar adenopathy by size criteria.? Central pulmonary arteries are normal in size.? To the limits of this study that is optimized for evaluation of the aorta, no findings of pulmonary embolism can be seen.? Esophagus is normal in caliber.? There is a small hiatal hernia. ? Bones and chest wall:? No axillary adenopathy by size criteria.? Thyroid gland demonstrates no significant abnormality.? No suspicious bony lesions.? No vertebral body compression fractures.? ? ? ABDOMEN:? Vasculature:? Celiac trunk and mesenteric arteries are patent.? Renal arteries are also patent.? ? Solid organs:? Liver is normal in size and enhancement.? Gallbladder demonstrates sludge within its lumen.? Biliary system is non dilated.? Pancreas enhances normally.? Spleen is normal in size and enhancement.? No adrenal nodules.? Both kidneys are normal in size and enhancement, without hydronephrosis.? ? Peritoneum and bowel:? No free fluid or air.? Bowel loops are normal in caliber and wall thickness.? Generalized fatty stranding can be seen involving the central mesentery.? Bariatric surgery can be seen.? ? Nodes and vessels:? No retroperitoneal or mesenteric adenopathy by size criteria.? Inferior vena cava is normal in morphology.? ? Miscellaneous:? A mild periumbilical hernia is seen, containing fat. ? Numerous subcutaneous nodules can be seen involving the anterior abdominal wall. ? ? PELVIS:? Genitourinary:? Bladder wall thickness is normal.? ? Miscellaneous:? No enlarged inguinal or pelvic lymph nodes are seen.? There is a fat-containing left inguinal hernia seen.? ? Bones:? No suspicious bony lesions.? No vertebral body compression fractures.? Age-appropriate bony degenerative changes are seen. This patient has transitional lumbar anatomy. For the purposes of this examination, the level with the last well- developed pair of ribs is considered to be T12.? By this numbering scheme, the L5 level is partially sacralized on the left.? IMPRESSION:? No acute abnormality can be seen.? Negative for dissection. ? The thoracic aorta is mildly aneurysmal, the ascending thoracic aorta measuring 4.9 cm and the aortic arch measuring 3.3 cm. ? No findings of pulmonary embolism are detected. ? Generalized fatty stranding can be seen involving the mesentery, which is attributed to chronic inflammatory change ? Anterior abdominal wall subcutaneous nodules. ? ? ? Incidental note is made of: Mild cardiomegaly Small hiatal hernia Sludge seen within the gallbladder lumen Bariatric surgery Fat containing periumbilical hernia Small fat containing left inguinal hernia Partially sacralized L5 level on the left ? ? Dictated by: Juan Campos M.D. on 03/25/2021 at 9:41 ? ? Approved by: Juan Campos M.D. on 03/25/2021 at 9:49? MDM Narrative Medical decision making narrative: Multiple etiologies for patient's symptoms considered including: [Kidney stone versus bowel infection with versus a dissection versus other Patient's symptoms improved over duration of stay with above-stated therapies. Findings and discharge diagnosis discussed with patient/family followed by verbalization of understanding Return precautions discussed with patient/family whom verbalize understanding. Discharge Plan Departure Patient Disposition: Home Clinical Impression: Abdominal wall pain in right flank Instructions: Thoracic Back Pain Activity Restrictions/Additional Instructions: *You have been diagnosed with [right flank pain. Your physical exam, labs and imaging are very reassuring. There is no evidence of a kidney stone, bowel obstruction, hematoma or other. This very well could be musculoskeletal pain *What to do: *Please continue to take your regular medications as directed. [x ] New medication prescriptions sent to your pharmacy: [[facility] in [place] ] [ ] New medication written as a paper prescription [ ] No new medications given *Please follow up with your primary care provider in 2-3 days, call for an ap pointment. Let them know you were seen in the Emergency Department and that we ask that you be seen in follow up. We will electronically transmit a record of today's note if your PCP is in our system *If you do not have a primary care provider please contact the [facility] Resource line at [phone]. They will ask some questions about your medical history and help get you set up with a doctor in the community. *Return to Emergency Department if you should have any new, worsening or co ncerning symptoms, such as [fever greater than 101 F, shaking chills, worsening pain, persistent vomiting or other bothersome symptoms] Prescriptions: New cyclobenzaprine 10 mg tablet 10 mg PO TID PRN (Reason: muscle spasm) Qty: 14 RF: 0 hydrocodone-acetaminophen 5-325 mg tablet 1 tab PO Q4-6H PRN (Reason: pain) Qty: 10 RF: 0 No Action ketoconazole 2 % cream 1 applictn TOP DAILY Qty: 30 RF: 1 testosterone cypionate 200 mg/mL oil 200 mg IM Q2W Qty: 6 RF: 1 (DME) Oxygen Qty: 1 RF: 0 atorvastatin 40 mg tablet 40 mg PO HS Qty: 90 RF: 2 (DME) generic syringes See Rx Instructions .Route .MEDSUPPLY Qty: 10 RF: 3 valsartan 320 mg tablet 320 mg PO QDAY Qty: 90 RF: 1 metoprolol succinate 200 mg tablet extended release 24 hr 200 mg PO DAILY Qty: 90 RF: 1 enoxaparin 100 mg/mL syringe 100 mg SUBCUT BID RF: 0 amoxicillin-pot clavulanate [Augmentin] 875-125 mg tablet 1 tab PO BID Qty: 10 RF: 0 Referrals: Johan Villarreal MD [Primary Care Provider] -
[2021-03-25 09:22] LABS: Anisocytosis 2+; Hypochromasia 1+; Microcytosis 2+
--- NOTE | 2021-03-25 10:00 | DI.CT.S_ITS ---
PROCEDURE: CT ANGIO CHEST ABDOMEN PELVIS INDICATIONS: severe back pain, radiation, history of aneurysm, on anticoagulation TECHNIQUE: Precontrast 5 mm thick sections through the chest. Noncontrast images of the abdomen pelvis performed earlier in the day. After the administration of intravenous contrast, 2.5 mm thick sections again acquired from the lung apices to the iliac crests. Maximum intensity projection (MIP) oblique sagittal and coronal reformats were then acquired. For radiation dose reduction, the following was used: automated exposure control. COMPARISON: [facility], CT, CT KIDNEY URETER BLADDER (KUB), 03/25/2021, 9:18. FINDINGS: Image quality: Excellent. AORTA: On precontrast imaging, no findings of mural hematomas can be seen. On postcontrast imaging, no findings of dissection are seen. There is mild aneurysmal dilatation seen of the ascending aorta, measuring 4.9 cm transversely, as measured on coronal images. The aortic arch is likely Raúl mildly aneurysmal at 3.3 cm. The descending thoracic aorta measures at the upper limits of normal at 3 cm. The abdominal aorta demonstrates normal caliber. The visualized lower extremity arteries are likewise within normal limits. CHEST: Lungs and pleura: No acute airspace opacities. No pleural effusions or pneumothorax. Central and peripheral airways are patent and normal in caliber. Mediastinum: Heart size is mildly enlarged. No pericardial effusion. No mediastinal or hilar adenopathy by size criteria. Central pulmonary arteries are normal in size. To the limits of this study that is optimized for evaluation of the aorta, no findings of pulmonary embolism can be seen. Esophagus is normal in caliber. There is a small hiatal hernia. Bones and chest wall: No axillary adenopathy by size criteria. Thyroid gland demonstrates no significant abnormality. No suspicious bony lesions. No vertebral body compression fractures. ABDOMEN: Vasculature: Celiac trunk and mesenteric arteries are patent. Renal arteries are also patent. Solid organs: Liver is normal in size and enhancement. Gallbladder demonstrates sludge within its lumen. Biliary system is non dilated. Pancreas enhances normally. Spleen is normal in size and enhancement. No adrenal nodules. Both kidneys are normal in size and enhancement, without hydronephrosis. Peritoneum and bowel: No free fluid or air. Bowel loops are normal in caliber and wall thickness. Generalized fatty stranding can be seen involving the central mesentery. Bariatric surgery can be seen. Nodes and vessels: No retroperitoneal or mesenteric adenopathy by size criteria. Inferior vena cava is normal in morphology. Miscellaneous: A mild periumbilical hernia is seen, containing fat. Numerous subcutaneous nodules can be seen involving the anterior abdominal wall. PELVIS: Genitourinary: Bladder wall thickness is normal. Miscellaneous: No enlarged inguinal or pelvic lymph nodes are seen. There is a fat-containing left inguinal hernia seen. Bones: No suspicious bony lesions. No vertebral body compression fractures. Age-appropriate bony degenerative changes are seen. This patient has transitional lumbar anatomy. For the purposes of this examination, the level with the last well-developed pair of ribs is considered to be T12. By this numbering scheme, the L5 level is partially sacralized on the left. IMPRESSION: No acute abnormality can be seen. Negative for dissection. The thoracic aorta is mildly aneurysmal, the ascending thoracic aorta measuring 4.9 cm and the aortic arch measuring 3.3 cm. No findings of pulmonary embolism are detected. Generalized fatty stranding can be seen involving the mesentery, which is attributed to chronic inflammatory change Anterior abdominal wall subcutaneous nodules. Incidental note is made of: Mild cardiomegaly Small hiatal hernia Sludge seen within the gallbladder lumen Bariatric surgery Fat containing periumbilical hernia Small fat containing left inguinal hernia Partially sacralized L5 level on the left Dictated by: Juan Campos M.D. on 03/25/2021 at 9:41 Approved by: Juan Campos M.D. on 03/25/2021 at 9:49
[2021-03-25] MEDS: LIDOCAINE PATCH 1 EACH ADH..PATCH TOP (11:26)
== END 2021-03-25 11:35 | disposition home or self-care (01) ==
PROVIDERS: Emergency Provider Emergency Medicine; PCP Student in an Organized Health Care Education/Training Program
DX: R10.9 Unspecified abdominal pain (principal); M54.6 Pain in thoracic spine; Z79.01 Long term (current) use of anticoagulants; Z86.79 Personal history of other diseases of the circulatory system
CPT/HCPCS: 71275; 74174; 74176; 80053; 81003; 85025; 85610; 85730; 99284; Q9967

== ENCOUNTER → 2021-04-06 08:15 | Outpatient (CLI) | payer OTHER, SELFPAY ==
[2021-04-06 09:16] LABS: Add Manual Diff / Slide Review NO; Basophils Absolute Auto 100 /uL (0-100); Basophils Percent Auto 1.4 % (0-2); Eosinophils Absolute Auto 200 /uL (0-450); Eosinophils Percent Auto 3.1 % (2-4); Hematocrit 30.4 % (41-53); Hemoglobin 9.7 g/dL (13.5-17.5); Lymphocytes Absolute Auto 1100 /uL (1100-4500); Lymphocytes Percent Auto 21.5 % (25-40); Mean Corpuscular HGB Conc 31.9 % (30-36); Mean Corpuscular Hemoglobin 21.6 PG (26-34); Mean Corpuscular Volume 67.6 fL (80-100); Monocytes Absolute Auto 500 /uL (0-900); Monocytes Percent Auto 9.1 % (3-14); Neutrophils Absolute Auto 3300 /uL (1500-7000); Neutrophils Percent Auto 64.9 % (50-75); Platelet Count 310 X10^3/uL (150-400); Red Cell Distribution Width 20.9 % (11.6-14.8); White Blood Cell Count 5.2 X10^3/uL (4.5-11.0)
[2021-04-06 09:33] LABS: INR 1.1 (0.9-1.3)
[2021-04-06 09:39] LABS: Alanine Aminotransferase 28 IU/L (<50); Albumin 4.1 g/dL (3.5-5.0); Albumin Globulin Ratio 2.1 (1.0-2.8); Alkaline Phosphatase 76 U/L (38-126); Aspartate Aminotransferase 29 IU/L (17-59); BUN Creatinine Ratio 24.1 (6-22); Blood Urea Nitrogen 20 mg/dL (9-20); Calcium 9.4 mg/dL (8.4-10.2); Carbon Dioxide 24 mmol/L (22-32); Chloride 107 mmol/L (98-107); Estimated Glomerular Filt Rate > 60.0 mL/min (>60); Glucose 93 mg/dL (80-110); HEMOLYSIS < 15 (0-50); Lipase 47 U/L (23-300); Potassium 4.8 mmol/L (3.4-5.1); Sodium 140 mmol/L (137-145); Total Protein 6.1 g/dL (6.3-8.2)
[2021-04-06 09:56] LABS: Anisocytosis 2+; Hypochromasia 1+; Microcytosis 2+
== END ==
PROVIDERS: PCP Internal Medicine; Referring Provider Surgery; Visit Provider Surgery
DX: R17 Unspecified jaundice (principal); I82.90 Acute embolism and thrombosis of unspecified vein
CPT/HCPCS: 36415; 80053; 83690; 85025; 85610

== ENCOUNTER → 2021-07-22 11:42 | Outpatient (CLI) | payer OTHER, SELFPAY ==
[2021-07-22 12:26] LABS: Add Manual Diff / Slide Review NO; Basophils Absolute Auto 100 /uL (0-100); Basophils Percent Auto 1.4 % (0-2); Eosinophils Absolute Auto 200 /uL (0-450); Eosinophils Percent Auto 2.3 % (2-4); Hematocrit 31.3 % (41-53); Hemoglobin 9.7 g/dL (13.5-17.5); Lymphocytes Absolute Auto 1500 /uL (1100-4500); Lymphocytes Percent Auto 22.9 % (25-40); Mean Corpuscular HGB Conc 30.9 % (30-36); Mean Corpuscular Hemoglobin 18.6 PG (26-34); Mean Corpuscular Volume 60.4 fL (80-100); Monocytes Absolute Auto 700 /uL (0-900); Neutrophils Absolute Auto 4200 /uL (1500-7000); Neutrophils Percent Auto 63.4 % (50-75); Platelet Count 295 X10^3/uL (150-400); Red Blood Cell Count 5.19 X10^6/uL (4.5-5.9); Red Cell Distribution Width 19.4 % (11.6-14.8); White Blood Cell Count 6.6 X10^3/uL (4.5-11.0)
[2021-07-22 12:52] LABS: INR 1.1 (0.9-1.3); Prothrombin Time 12.6 SECONDS (10.1-12.7)
[2021-07-22 12:55] LABS: Alanine Aminotransferase 22 IU/L (<50); Albumin 4.4 g/dL (3.5-5.0); Albumin Globulin Ratio 1.8 (1.0-2.8); Alkaline Phosphatase 71 U/L (38-126); Aspartate Aminotransferase 24 IU/L (17-59); BUN Creatinine Ratio 26.7 (6-22); Bilirubin Total 3.1 mg/dL (0.2-1.3); Blood Urea Nitrogen 23 mg/dL (9-20); Calcium 9.2 mg/dL (8.4-10.2); Carbon Dioxide 28 mmol/L (22-32); Chloride 106 mmol/L (98-107); Estimated Glomerular Filt Rate > 60.0 mL/min (>60); Globulin 2.4 g/dL (1.7-4.1); Glucose 94 mg/dL (80-110); HEMOLYSIS < 15 (0-50); Lipase 65 U/L (23-300); Potassium 4.7 mmol/L (3.4-5.1); Sodium 138 mmol/L (137-145); Total Protein 6.8 g/dL (6.3-8.2)
[2021-07-22 13:20] LABS: Hypochromasia 2+; Microcytosis 2+; Poikilocytosis 2+
[2021-07-26 19:04] LABS: Heparin Anti Xa LMWH 0.99 IU/mL (.)
== END ==
PROVIDERS: PCP Student in an Organized Health Care Education/Training Program; Referring Provider Surgery; Visit Provider Internal Medicine
DX: R17 Unspecified jaundice (principal)
CPT/HCPCS: 36415; 80053; 83690; 85025; 85520; 85610

== ENCOUNTER → 2021-07-27 13:12 | Outpatient (CLI) | payer OTHER, SELFPAY ==
[2021-07-27 13:47] LABS: Add Manual Diff / Slide Review NO; Basophils Absolute Auto 100 /uL (0-100); Basophils Percent Auto 1.4 % (0-2); Eosinophils Absolute Auto 100 /uL (0-450); Eosinophils Percent Auto 1.4 % (2-4); Hematocrit 32.1 % (41-53); Hemoglobin 9.7 g/dL (13.5-17.5); Lymphocytes Absolute Auto 1400 /uL (1100-4500); Lymphocytes Percent Auto 19.5 % (25-40); Mean Corpuscular HGB Conc 30.3 % (30-36); Mean Corpuscular Hemoglobin 18.3 PG (26-34); Mean Corpuscular Volume 60.4 fL (80-100); Monocytes Absolute Auto 500 /uL (0-900); Neutrophils Absolute Auto 5000 /uL (1500-7000); Neutrophils Percent Auto 70.7 % (50-75); Platelet Count 293 X10^3/uL (150-400); Red Blood Cell Count 5.31 X10^6/uL (4.5-5.9); Red Cell Distribution Width 19.8 % (11.6-14.8); White Blood Cell Count 7.1 X10^3/uL (4.5-11.0)
[2021-07-27 13:59] LABS: Alanine Aminotransferase 24 IU/L (<50); Albumin 4.6 g/dL (3.5-5.0); Albumin Globulin Ratio 1.7 (1.0-2.8); Alkaline Phosphatase 80 U/L (38-126); Aspartate Aminotransferase 28 IU/L (17-59); BUN Creatinine Ratio 25.3 (6-22); Bilirubin Total 3.7 mg/dL (0.2-1.3); Blood Urea Nitrogen 25 mg/dL (9-20); Calcium 9.4 mg/dL (8.4-10.2); Carbon Dioxide 24 mmol/L (22-32); Chloride 109 mmol/L (98-107); Estimated Glomerular Filt Rate > 60.0 mL/min (>60); Globulin 2.7 g/dL (1.7-4.1); Glucose 106 mg/dL (80-110); HEMOLYSIS < 15 (0-50); Lactate Dehydrogenase 394 U/L (313-618); Potassium 4.1 mmol/L (3.4-5.1); Sodium 140 mmol/L (137-145); Total Protein 7.3 g/dL (6.3-8.2)
[2021-07-27 14:05] LABS: Reticulocyte Count, Percent 1.4 % (0.9-2.6)
[2021-07-27 14:07] LABS: Iron 28 ug/dL (49-181)
[2021-07-27 14:08] LABS: Anisocytosis 1+; Hypochromasia 2+; Poikilocytosis 1+
[2021-07-27 14:32] LABS: Ferritin 7 ng/mL (18-464)
[2021-07-28 07:47] LABS: Haptoglobin 191 mg/dL (32-363)
== END ==
PROVIDERS: Family Provider Student in an Organized Health Care Education/Training Program; PCP Student in an Organized Health Care Education/Training Program; Referring Provider Internal Medicine; Visit Provider Internal Medicine
DX: I82.90 Acute embolism and thrombosis of unspecified vein (principal)
CPT/HCPCS: 36415; 80053; 82728; 83010; 83540; 83615; 85025; 85045; 86880

== ENCOUNTER → 2021-09-09 09:07 | Outpatient (CLI) | payer OTHER, SELFPAY ==
[2021-09-09 10:05] LABS: Basophils Absolute Auto 100 /uL (0-100); Basophils Percent Auto 0.8 % (0-2); Eosinophils Absolute Auto 100 /uL (0-450); Eosinophils Percent Auto 1.2 % (2-4); Hemoglobin 10.3 g/dL (13.5-17.5); Lymphocytes Absolute Auto 1200 /uL (1100-4500); Lymphocytes Percent Auto 12.7 % (25-40); Mean Corpuscular HGB Conc 30.3 % (30-36); Mean Corpuscular Hemoglobin 18.5 PG (26-34); Mean Corpuscular Volume 61.1 fL (80-100); Monocytes Absolute Auto 500 /uL (0-900); Monocytes Percent Auto 5.5 % (3-14); Neutrophils Absolute Auto 7800 /uL (1500-7000); Neutrophils Percent Auto 79.8 % (50-75); Platelet Count 350 X10^3/uL (150-400); Red Blood Cell Count 5.56 X10^6/uL (4.5-5.9); Red Cell Distribution Width 23.8 % (11.6-14.8); White Blood Cell Count 9.7 X10^3/uL (4.5-11.0)
[2021-09-09 10:07] LABS: Add Manual Diff / Slide Review SLIDE REVIEW
[2021-09-09 10:53] LABS: HEMOLYSIS < 15 (0-50); Iron 26 ug/dL (49-181)
[2021-09-09 11:04] LABS: Percent Iron Saturation 5 % (20-50); Total Iron Binding Capacity 495 ug/dL (261-462); Transferrin 403 mg/dL (206-381)
[2021-09-09 11:14] LABS: Hypochromasia 3+; Microcytosis 2+
[2021-09-09 11:15] LABS: Anisocytosis 3+
[2021-09-09 11:16] LABS: Ovalocytes 1+; Tear Drop Cells 1+
[2021-09-09 11:17] LABS: Schistocytes 1+
[2021-09-09 11:20] LABS: Ferritin 9 ng/mL (18-464)
== END ==
PROVIDERS: Family Provider Student in an Organized Health Care Education/Training Program; PCP Student in an Organized Health Care Education/Training Program; Referring Provider Internal Medicine; Visit Provider Internal Medicine
DX: D50.9 Iron deficiency anemia, unspecified (principal)
CPT/HCPCS: 36415; 82728; 83540; 83550; 85025

== ENCOUNTER → 2022-04-25 11:25 | Outpatient (CLI) | payer OTHER, SELFPAY ==
--- NOTE | 2022-04-25 11:26 | DI.CT.S_ITS ---
PROCEDURE: CT CHEST WO CON INDICATIONS: Hemoptysis TECHNIQUE: Noncontrast 5 mm thick sections acquired from the pulmonary apices to the posterior costophrenic angles. 1 mm lung window, 5 mm thick coronal and sagittal and 7 mm axial MIP reformats were then acquired. For radiation dose reduction, the following was used: automated exposure control, adjustment of mA and/or kV according to patient size. COMPARISON: [facility], CT, CT ANGIO CHEST ABDOMEN PELVIS, 03/25/2021, 10:11. FINDINGS: Image quality: Suboptimal due to motion artifact. Lungs and pleura: No consolidation. Possible clustered micro nodularity medial right lower lobe (for example 197-209). No pleural effusions or pneumothorax. Mediastinum: No pericardial effusion. Coronary artery calcifications are present. Aneurysmal dilation of the ascending aorta measuring 5.2 cm measured at the level of the right pulmonary artery. Bones and chest wall:. Multilevel degenerative change of the visualized spine. Abdomen: Postsurgical changes of the stomach partially imaged, probable prior sleeve gastrectomy. IMPRESSION: 1. No consolidation demonstrated. 2. Evaluation of the lung bases is compromised due to motion artifact. Suspect there may be mild clustered micro-nodularity present at the medial aspect of the right lower lobe, which is a nonspecific finding that is likely infectious/inflammatory, could be seen in the setting of an infectious bronchiolitis or aspiration. This finding may be artifactual however. 3. Ascending thoracic aorta aneurysm measuring 5.2 cm. Dictated by: Fredy Nicholson M.D. on 04/25/2022 at 16:49 Approved by: Fredy Nicholson M.D. on 04/25/2022 at 17:05
== END ==
PROVIDERS: Family Provider Student in an Organized Health Care Education/Training Program; PCP Student in an Organized Health Care Education/Training Program; Referring Provider Student in an Organized Health Care Education/Training Program; Visit Provider Student in an Organized Health Care Education/Training Program
DX: I71.21 Aneurysm of the ascending aorta, without rupture (principal); R04.2 Hemoptysis
CPT/HCPCS: 71250

== ENCOUNTER → 2022-06-08 10:22 | Outpatient (CLI) | payer OTHER, SELFPAY ==
--- NOTE | 2022-06-08 10:26 | DI.US.S_ITS ---
PROCEDURE: US ABDOMEN LIMITED INDICATIONS: eval RLQ sub q lump, cystic vs solid vs hematoma vs lipoma TECHNIQUE: Real-time focused scanning was performed of the abdomen, with image documentation. COMPARISON: None. FINDINGS: Examination of right lower quadrant abdomen at patient's reported area of palpable lump shows a heterogeneously hypoechoic structure within subcutaneous soft tissue measures 1.6 x 1.7 x 3.7 cm in size with through acoustic enhancement and low level internal echoes. No internal vascularity is seen. No peripheral hypervascularity is seen. IMPRESSION: Complex cystic area within right lower quadrant abdominal wall subcutaneous soft tissue as described above likely represent organizing hematoma. The appearance is not consistent with abscess collection. Dictated by: Natalio Cordero M.D. on 06/08/2022 at 12:02 Approved by: Natalio Cordero M.D. on 06/08/2022 at 12:03
== END ==
PROVIDERS: Family Provider Student in an Organized Health Care Education/Training Program; PCP Student in an Organized Health Care Education/Training Program; Referring Provider Family Medicine; Visit Provider Family Medicine
DX: R22.41 Localized swelling, mass and lump, right lower limb
CPT/HCPCS: 76705

== ENCOUNTER → 2023-03-01 10:30 | Outpatient (CLI) | payer OTHER, SELFPAY | PROVIDERS: Family Provider Student in an Organized Health Care Education/Training Program; PCP Family Medicine; Visit Provider Physician Assistant Medical | DX: L08.9 Local infection of the skin and subcutaneous tissue, unspecified (principal); S90.412A Abrasion, left great toe, initial encounter | CPT/HCPCS: 87070; 87075; 87205 ==

== ENCOUNTER → 2023-03-09 11:28 | Outpatient (CLI) | payer OTHER, SELFPAY ==
[2023-03-09 11:59] LABS: Add Manual Diff / Slide Review NO; Basophils Absolute Auto 100 /uL (0-100); Basophils Percent Auto 0.8 % (0-2); Eosinophils Absolute Auto 100 /uL (0-450); Eosinophils Percent Auto 1.8 % (2-4); Hematocrit 45.3 % (41-53); Hemoglobin 15.6 g/dL (13.5-17.5); Lymphocytes Absolute Auto 1600 /uL (1100-4500); Lymphocytes Percent Auto 21.3 % (25-40); Mean Corpuscular HGB Conc 34.4 % (30-36); Monocytes Absolute Auto 600 /uL (0-900); Monocytes Percent Auto 7.7 % (3-14); Neutrophils Absolute Auto 5300 /uL (1500-7000); Neutrophils Percent Auto 68.4 % (50-75); Platelet Count 283 X10^3/uL (150-400); Red Cell Distribution Width 15.5 % (11.6-14.8); White Blood Cell Count 7.7 X10^3/uL (4.5-11.0)
[2023-03-09 12:06] LABS: Hemoglobin A1C% w Est Avg Glu 5.3 % (4.0-6.0)
[2023-03-09 12:11] LABS: Alanine Aminotransferase 45 IU/L (<50); Albumin 4.6 g/dL (3.5-5.0); Albumin Globulin Ratio 1.8 (1.0-2.8); Alkaline Phosphatase 89 U/L (38-126); Aspartate Aminotransferase 35 IU/L (17-59); Bilirubin Total 4.2 mg/dL (0.2-1.3); Blood Urea Nitrogen 17 mg/dL (9-20); Carbon Dioxide 24 mmol/L (22-32); Chloride 107 mmol/L (98-107); Cholesterol 120 mg/dL (140-199); Estimated Glomerular Filt Rate > 60 mL/min (>60); Globulin 2.6 g/dL (1.7-4.1); Glucose 99 mg/dL (80-110); HDL Cholesterol 33 mg/dL (40-60); HEMOLYSIS < 15 (0-50); Iron 89 ug/dL (49-181); LDL Cholesterol Calculated 41 mg/dL (<100); Sodium 140 mmol/L (137-145); Total Protein 7.2 g/dL (6.3-8.2); Triglycerides 230 mg/dL (35-150)
[2023-03-09 12:22] LABS: Percent Iron Saturation 21 % (20-50); Total Iron Binding Capacity 422 ug/dL (261-462); Transferrin 320 mg/dL (206-381)
[2023-03-09 12:41] LABS: Prostate Specific Antigen Scrn 1.79 ng/mL (0.1-4.0)
[2023-03-09 14:26] LABS: Microalbumin Urine Random 9.7 mg/dL (0-1.6)
[2023-03-09 16:54] LABS: Creatinine Urine Random 586.2 mg/dL; Microalbumi Creatinin Ratio Ur 16.5 ug/mg CR (<30)
[2023-03-21 08:13] LABS: Testosterone Total 727.8 ng/dL (264.0-916.0)
== END ==
PROVIDERS: Family Provider Student in an Organized Health Care Education/Training Program; PCP Family Medicine; Referring Provider Family Medicine; Visit Provider Family Medicine
DX: E66.01 Morbid (severe) obesity due to excess calories (principal); E29.1 Testicular hypofunction; I10 Essential (primary) hypertension; Z12.5 Encounter for screening for malignant neoplasm of prostate
CPT/HCPCS: 36415; 80053; 80061; 82043; 82570; 83036; 83540; 83550; 84402; 84403; 85025; G0103

== ENCOUNTER → 2023-05-22 18:54 | Outpatient (CLI) | payer OTHER, SELFPAY ==
--- NOTE | 2023-05-22 18:55 | DI.MRI.S_ITS ---
PROCEDURE: MR ELBOW RT WO CON INDICATIONS: persistant R elbow pain TECHNIQUE: Noncontrast coronal proton density fast spin echo and T2 fast spin echo with fat saturation, axial and sagittal T1 spin echo and T2 fast spin echo with fat saturation through the elbow. COMPARISON: None. FINDINGS: Image quality: Excellent. Lateral structures: The lateral ulnar collateral ligament and radial collateral ligament both appear thickened at their lateral epicondylar insertion. The overlying common extensor tendon also appears thickened with intrasubstance T2 hyperintense signal at its lateral epicondylar insertion Medial structures: The ulnar collateral ligament appears intact. The overlying common flexor tendon appears normal. The ulnar nerve appears normal in size and signal within the cubital tunnel. Anterior structures: The biceps and brachialis tendons both appear intact as they insert onto the proximal radius and ulna, respectively. No bicipitoradial bursal fluid. The median and radial neurovascular bundles appear normal; no focal muscle atrophy to suggest nerve impingement. Posterior structures: Distal triceps tendinosis at its posterior calcaneal insertion is seen. No olecranon bursal fluid. Bone and cartilage: No bone marrow contusions or fractures. No osteochondral injuries. IMPRESSION: 1. Finding is consistent with [id number] lateral epicondylitis with sprain/low-grade partial-thickness tear involving lateral collateral ligaments at their lateral epicondylar insertion and tendinosis/low-grade intrasubstance partial-thickness tear involving overlying common extensor tendon origin. 2. Distal triceps tendinosis. 3. No marrow edema. No fracture or dislocation. No gross osteochondral injuries. Dictated by: Natalio Cordero M.D. on 05/23/2023 at 10:39 Approved by: Natalio Cordero M.D. on 05/23/2023 at 10:41
== END ==
PROVIDERS: Family Provider Student in an Organized Health Care Education/Training Program; PCP Family Medicine; Referring Provider Physician Assistant Medical; Visit Provider Physician Assistant Medical
DX: M77.11 Lateral epicondylitis, right elbow (principal); M77.8 Other enthesopathies, not elsewhere classified; S53.441A Ulnar collateral ligament sprain of right elbow, initial encounter; S53.431A Radial collateral ligament sprain of right elbow, initial encounter
CPT/HCPCS: 73221

== ENCOUNTER → 2023-08-01 09:23 | Outpatient (CLI) | payer OTHER, SELFPAY ==
[2023-08-01 19:14] LABS: Add Manual Diff / Slide Review NO; Basophils Absolute Auto 0 /uL (0-100); Basophils Percent Auto 0.7 % (0-2); Eosinophils Absolute Auto 200 /uL (0-450); Eosinophils Percent Auto 2.8 % (2-4); Hematocrit 50.9 % (41-53); Hemoglobin 17.2 g/dL (13.5-17.5); Lymphocytes Absolute Auto 1300 /uL (1100-4500); Lymphocytes Percent Auto 19.1 % (25-40); Mean Corpuscular HGB Conc 33.8 % (30-36); Mean Corpuscular Hemoglobin 29.1 PG (26-34); Mean Corpuscular Volume 85.9 fL (80-100); Monocytes Absolute Auto 700 /uL (0-900); Monocytes Percent Auto 9.7 % (3-14); Neutrophils Absolute Auto 4600 /uL (1500-7000); Neutrophils Percent Auto 67.7 % (50-75); Platelet Count 211 X10^3/uL (150-400); Red Blood Cell Count 5.93 X10^6/uL (4.5-5.9); Red Cell Distribution Width 16.5 % (11.6-14.8); White Blood Cell Count 6.8 X10^3/uL (4.5-11.0)
[2023-08-01 19:23] LABS: Hemoglobin A1C% w Est Avg Glu 5.6 % (4.0-6.0)
[2023-08-01 20:26] LABS: Alanine Aminotransferase 39 IU/L (<50); Albumin 4.4 g/dL (3.5-5.0); Albumin Globulin Ratio 1.8 (1.0-2.8); Alkaline Phosphatase 87 U/L (38-126); Aspartate Aminotransferase 36 IU/L (17-59); BUN Creatinine Ratio 22.8 (6-22); Bilirubin Total 4.4 mg/dL (0.2-1.3); Blood Urea Nitrogen 18 mg/dL (9-20); Calcium 9.8 mg/dL (8.4-10.2); Carbon Dioxide 21 mmol/L (22-32); Chloride 109 mmol/L (98-107); Cholesterol 139 mg/dL (140-199); Estimated Glomerular Filt Rate > 60 mL/min (>60); Globulin 2.5 g/dL (1.7-4.1); Glucose 86 mg/dL (80-110); HDL Cholesterol 34 mg/dL (40-60); HEMOLYSIS < 15 (0-50); LDL Cholesterol Calculated 64 mg/dL (<100); Sodium 141 mmol/L (137-145); Total Protein 6.9 g/dL (6.3-8.2); Triglycerides 204 mg/dL (35-150)
[2023-08-01 20:28] LABS: Potassium 5.6 mmol/L (3.4-5.1)
== END ==
PROVIDERS: Family Provider Student in an Organized Health Care Education/Training Program; PCP Family Medicine; Visit Provider Family Medicine
DX: Z86.73 Personal history of transient ischemic attack (TIA), and cerebral infarction without residual deficits (principal); I48.20 Chronic atrial fibrillation, unspecified; I10 Essential (primary) hypertension; I50.30 Unspecified diastolic (congestive) heart failure; I25.10 Atherosclerotic heart disease of native coronary artery without angina pectoris; E78.2 Mixed hyperlipidemia; E55.9 Vitamin D deficiency, unspecified
CPT/HCPCS: 80053; 80061; 83036; 85025

== ENCOUNTER → 2023-10-01 15:55 | Outpatient (CLI) | payer OTHER, SELFPAY | PROVIDERS: Family Provider Student in an Organized Health Care Education/Training Program; PCP Family Medicine; Visit Provider Physician Assistant Medical | DX: R21 Rash and other nonspecific skin eruption (principal) | CPT/HCPCS: 87070; 87075; 87205 ==

== ENCOUNTER → 2023-12-26 08:59 | Outpatient (CLI) | payer OTHER, SELFPAY ==
[2023-12-26 20:22] LABS: Add Manual Diff / Slide Review NO; Basophils Absolute Auto 100 /uL (0-100); Basophils Percent Auto 0.9 % (0-2); Eosinophils Absolute Auto 200 /uL (0-450); Eosinophils Percent Auto 2.6 % (2-4); Hematocrit 51.4 % (41-53); Hemoglobin 17.5 g/dL (13.5-17.5); Lymphocytes Absolute Auto 1600 /uL (1100-4500); Lymphocytes Percent Auto 18.9 % (25-40); Mean Corpuscular Hemoglobin 31.1 PG (26-34); Mean Corpuscular Volume 91.4 fL (80-100); Monocytes Absolute Auto 700 /uL (0-900); Monocytes Percent Auto 8.2 % (3-14); Neutrophils Absolute Auto 6000 /uL (1500-7000); Neutrophils Percent Auto 69.4 % (50-75); Platelet Count 221 X10^3/uL (150-400); Red Blood Cell Count 5.63 X10^6/uL (4.5-5.9); Red Cell Distribution Width 15.8 % (11.6-14.8); White Blood Cell Count 8.6 X10^3/uL (4.5-11.0)
[2023-12-26 20:45] LABS: Alanine Aminotransferase 30 IU/L (<50); Albumin 4.5 g/dL (3.5-5.0); Albumin Globulin Ratio 2.1 (1.0-2.8); Alkaline Phosphatase 79 U/L (38-126); Aspartate Aminotransferase 32 IU/L (17-59); Bilirubin Total 5.7 mg/dL (0.2-1.3); Blood Urea Nitrogen 17 mg/dL (9-20); Calcium 9.2 mg/dL (8.4-10.2); Carbon Dioxide 23 mmol/L (22-32); Chloride 106 mmol/L (98-107); Cholesterol 132 mg/dL (140-199); Estimated Glomerular Filt Rate > 60 mL/min (>60); Globulin 2.1 g/dL (1.7-4.1); Glucose 89 mg/dL (80-110); HDL Cholesterol 36 mg/dL (40-60); HEMOLYSIS 22 (0-50); LDL Cholesterol Calculated 46 mg/dL (<100); Potassium 4.3 mmol/L (3.4-5.1); Sodium 138 mmol/L (137-145); Total Protein 6.6 g/dL (6.3-8.2); Triglycerides 248 mg/dL (35-150)
[2023-12-26 20:52] LABS: NT-proBNP (BNP-Adult 18+) 442 pg/mL (<125)
[2023-12-26 21:08] LABS: Hemoglobin A1C% w Est Avg Glu 5.2 % (4.0-6.0)
== END ==
PROVIDERS: Family Provider Student in an Organized Health Care Education/Training Program; PCP Family Medicine; Referring Provider Family Medicine; Visit Provider Family Medicine
DX: F32.9 Major depressive disorder, single episode, unspecified (principal); Z86.73 Personal history of transient ischemic attack (TIA), and cerebral infarction without residual deficits; I25.10 Atherosclerotic heart disease of native coronary artery without angina pectoris; I50.30 Unspecified diastolic (congestive) heart failure; E78.2 Mixed hyperlipidemia; R06.02 Shortness of breath; I11.0 Hypertensive heart disease with heart failure
CPT/HCPCS: 80053; 80061; 83036; 83880; 85025

== ENCOUNTER → 2024-03-10 09:27 | Outpatient (CLI) | payer OTHER, SELFPAY ==
--- NOTE | 2024-03-10 09:28 | DI.MRI.S_ITS ---
PROCEDURE: MR ELBOW RT WO CON INDICATIONS: HX OF RT TENNIS ELBOW TECHNIQUE: Noncontrast coronal proton density fast spin echo and T2 fast spin echo with fat saturation, axial and sagittal T1 spin echo and T2 fast spin echo with fat saturation through the elbow. COMPARISON: [facility] ([place]), CR, XR ELBOW RT MIN 3V, 02/26/2023, 14:36. [facility], MR, MR ELBOW RT WO CON, 05/22/2023, 19:15. FINDINGS: Image quality: Excellent. Bones: The bone marrow signal is normal. There is no evidence of fracture or osteochondral lesion. Radiocapitellar alignment is normal. Joints: No elbow joint effusion is present. Bursae: There is no fluid within the olecranon and bicipitoradial bursae. Ligaments: There is intermediate signal of the proximal portions of the anterior band of the ulnar collateral ligament, radial collateral ligament, and lateral ulnar collateral ligament. Normal proximal radioulnar alignment implies an intact annular ligament. Tendons: The common flexor-pronator tendon is normal. The common extensor-supinator tendon is thickened with intermediate signal at the origin (5/12), although improved when compared to 05/22/2023. The distal biceps tendon, brachialis tendon and triceps tendon are normal. Nerves: The ulnar, radial, and median nerves appear normal in size and signal. Musculature: Muscle bulk is preserved with no evidence of denervation. IMPRESSION: 1. Re-identified chronic sprains of the ulnar collateral, radial collateral, and lateral ulnar collateral ligaments. 2. Mildly improved appearance of a strain/partial tear involving the common extensor tendon origin. Dictated by: Nacho Jeter M.D. on 03/13/2024 at 15:17 Approved by: Nacho Jeter M.D. on 03/13/2024 at 15:32
== END ==
PROVIDERS: Family Provider Student in an Organized Health Care Education/Training Program; PCP Family Medicine; Referring Provider Orthopaedic Surgery; Visit Provider Orthopaedic Surgery
DX: S53.441A Ulnar collateral ligament sprain of right elbow, initial encounter (principal); S53.431A Radial collateral ligament sprain of right elbow, initial encounter; S56.511A Strain of other extensor muscle, fascia and tendon at forearm level, right arm, initial encounter; S53.491A Other sprain of right elbow, initial encounter; Z87.39 Personal history of other diseases of the musculoskeletal system and connective tissue
CPT/HCPCS: 73221

== ENCOUNTER → 2024-04-27 12:20 | Outpatient (CLI) | payer OTHER, SELFPAY ==
--- NOTE | 2024-04-27 12:24 | DI.ECHO.S_ITS ---
[facility]+ [facility] : : [address] : : [place] : : [id number] : : Phone: [phone] Echocardiogram Report + + :Name: PHILIP CANDELARIO Study Date: 04/27/2024 Height: 73 in : :[facility] ReadingLocation: Weight: 390 lb : : Gender: Male BSA: 2.9 m2 : :: 1955 Age: 68 yrs BP: 114/84 mmHg: :Reason For Study: CONGESTIVE HEART FAILURE : :Ordering Physician: JEMAL, : :RADHA Performed By: Eduardo Chase : :Referring: RADHA JOAQUIN : + + Interpretation Summary The left ventricle is normal in size. Left ventricular systolic function is normal. The ejection fraction is estimated to be 55-60%. There are no obvious focal wall motion abnormalities noted but poor endocardial definition reduces the sensitivity for the detection of such. The aortic root is mildly dilated. The ascending aorta is mildly enlarged. The right ventricle is mildly dilated. The right ventricular systolic function is normal. The left atrium is mildly dilated. Procedure: A two-dimensional transthoracic echocardiogram with color flow and Doppler was performed. A contrast injection of Definity was performed to improve assessment of LV function. The study quality was technically difficult. Comparison is made with the echocardiogram of 02/03/2020. The patient was in atrial fibrillation with controlled ventricular rate during the exam. Left Ventricle: The left ventricle is normal in size. Left ventricular wall thickness is mildly increased. There is no ventricular septal defect visualized. Left ventricular systolic function is normal. The ejection fraction is estimated to be 55-60%. There are no obvious focal wall motion abnormalities noted but poor endocardial definition reduces the sensitivity for the detection of such. Diastolic function could not be accurately assessed due to atrial fibrillation. Right Ventricle: The right ventricle is mildly dilated. The right ventricular systolic function is normal. Atria: The left atrium is mildly dilated. The right atrium is mildly dilated. There is no Doppler evidence for an atrial septal defect. Mitral Valve: The mitral valve is not well visualized. There is trace mitral regurgitation. Aortic Valve: The aortic valve is not well visualized. There is trace aortic regurgitation. Tricuspid Valve: The tricuspid valve is normal in structure and function. There is trace tricuspid regurgitation. Pulmonic Valve: The pulmonic valve is normal in structure and function. There is no pulmonic valvular regurgitation. Great Vessels: The aortic root is mildly dilated. The ascending aorta is mildly enlarged. The pulmonary artery is normal size. The IVC is dilated (diameter is greater than 2.1 cm) and it collapses less than 50% with a sniff. This suggests a high right atrial pressure of 15 mm Hg. Pericardium/ Pleura There is no pericardial effusion. MMode/2D Measurements & Calculations LVIDd: 5.6 cm LVOT diam: 2.2 cm LVIDs: 3.9 cm Ao root diam: 4.3 cm FS: 30.7 % asc Aorta Diam: 4.3 cm EPSS: 0.70 cm IVSd: 1.0 cm LVPWd: 1.2 cm LV garza. diameter/BSA (cm/m^2): 2.0 LV sys. diameter/BSA (cm/m^2): 1.4 LA A2 area: 27.0 cm2 RA long axis: 6.0 cm LA A4 area: 29.9 cm2 RA area: 27.3 cm2 LA length (vol): 6.8 cm RA vol: 105.9 ml LA vol: 100.8 ml RA : 37.1 ml/m2 LA vol index: 35.3 ml/m2 IVC diam: 2.5 cm RVD1 (basal): 4.4 cm RVD2 (mid): 3.3 cm TAPSE: 2.9 cm Doppler Measurements & Calculations Ao V2 max: 109.2 cm/sec LVOT Max Geovanni: 83.6 cm/sec Ao V2 mean: 75.1 cm/sec LV V1 max P.8 mmHg Ao max P.8 mmHg LV V1 VTI: 20.1 cm Ao mean P.6 mmHg NILESH(I,D): 3.2 cm2 Ao V2 VTI: 23.7 cm NILESH(V,D): 2.9 cm2 sev ratio: 0.85 NILESH indexed to BSA (cm^2/m^2): 1.1 MV E max geovanni: 96.3 cm/sec TR max geovanni: 229.1 cm/sec MV A max geovanni: 25.5 cm/sec TR max P.0 mmHg MV E/A: 3.8 PA V2 max: 78.5 cm/sec Med Peak E' Geovanni: 9.7 cm/sec PA V2 mean: 57.2 cm/sec E/E' med: 10.0 PA mean P.4 mmHg Lat Peak E' Geovanni: 8.1 cm/sec PA pr(Accel): 36.2 mmHg E/E' lat: 11.9 E/e' average: 10.9 MV dec time: 0.17 sec SV(LVOT): 76.4 ml Reading Physician:06:52 PM
== END ==
LOC: ECHO 12:23
PROVIDERS: PCP Family Medicine; Referring Provider Family Medicine; Visit Provider Family Medicine
DX: I71.20 Thoracic aortic aneurysm, without rupture, unspecified (principal); I77.89 Other specified disorders of arteries and arterioles; I48.20 Chronic atrial fibrillation, unspecified; I11.0 Hypertensive heart disease with heart failure; I50.30 Unspecified diastolic (congestive) heart failure
CPT/HCPCS: C8929; Q9957

== ENCOUNTER → 2024-09-21 08:38 | Outpatient (CLI) | payer MEDICARE, BC, SELFPAY ==
[2024-09-21 10:09] LABS: Add Manual Diff / Slide Review NO; Basophils Absolute Auto 100 /uL (0-100); Basophils Percent Auto 0.7 % (0-2); Eosinophils Absolute Auto 100 /uL (0-450); Eosinophils Percent Auto 1.6 % (2-4); Hematocrit 56.4 % (41-53); Hemoglobin 18.9 g/dL (13.5-17.5); Lymphocytes Absolute Auto 1200 /uL (1100-4500); Lymphocytes Percent Auto 12.8 % (25-40); Mean Corpuscular HGB Conc 33.5 % (30-36); Mean Corpuscular Hemoglobin 28.9 PG (26-34); Mean Corpuscular Volume 86.5 fL (80-100); Monocytes Absolute Auto 800 /uL (0-900); Monocytes Percent Auto 8.4 % (3-14); Neutrophils Absolute Auto 7000 /uL (1500-7000); Neutrophils Percent Auto 76.5 % (50-75); Platelet Count 209 X10^3/uL (150-400); Red Blood Cell Count 6.53 X10^6/uL (4.5-5.9); Red Cell Distribution Width 15.6 % (11.6-14.8); White Blood Cell Count 9.1 X10^3/uL (4.5-11.0)
[2024-09-21 10:14] LABS: Hemoglobin A1C% w Est Avg Glu 5.2 % (4.0-6.0)
[2024-09-21 10:31] LABS: Alanine Aminotransferase 30 IU/L (<50); Albumin 4.8 g/dL (3.5-5.0); Albumin Globulin Ratio 2.1 (1.0-2.8); Alkaline Phosphatase 93 U/L (38-126); Aspartate Aminotransferase 31 IU/L (17-59); BUN Creatinine Ratio 20.4 (6-22); Bilirubin Total 4.3 mg/dL (0.2-1.3); Blood Urea Nitrogen 20 mg/dL (9-20); Calcium 9.6 mg/dL (8.4-10.2); Carbon Dioxide 21 mmol/L (22-32); Chloride 107 mmol/L (98-107); Cholesterol 91 mg/dL (140-199); Estimated Glomerular Filt Rate > 60 mL/min (>60); Globulin 2.3 g/dL (1.7-4.1); Glucose 101 mg/dL (80-110); HDL Cholesterol 32 mg/dL (40-60); HEMOLYSIS < 15 (0-50); LDL Cholesterol Calculated 24 mg/dL (<100); Potassium 4.6 mmol/L (3.4-5.1); Sodium 139 mmol/L (137-145); Total Protein 7.1 g/dL (6.3-8.2); Triglycerides 174 mg/dL (35-150)
== END ==
PROVIDERS: PCP Family Medicine; Referring Provider Family Medicine; Visit Provider Family Medicine
DX: Z12.5 Encounter for screening for malignant neoplasm of prostate (principal); I48.20 Chronic atrial fibrillation, unspecified; I25.10 Atherosclerotic heart disease of native coronary artery without angina pectoris; I50.32 Chronic diastolic (congestive) heart failure; Z86.73 Personal history of transient ischemic attack (TIA), and cerebral infarction without residual deficits; E78.2 Mixed hyperlipidemia; E29.1 Testicular hypofunction; Z51.81 Encounter for therapeutic drug level monitoring; Z79.890 Hormone replacement therapy; R79.89 Other specified abnormal findings of blood chemistry; I11.0 Hypertensive heart disease with heart failure
CPT/HCPCS: 36415; 80053; 80061; 83036; 84402; 84403; 85025; G0103

== ENCOUNTER → 2024-11-04 14:12 | Outpatient (CLI) | payer MEDICARE, BC, SELFPAY ==
[2024-11-13 07:09] LABS: Percent Free Testosterone 5.08 % (1.50-4.20); Testosterone Free 38.66 ng/dL (5.00-21.00)
== END ==
PROVIDERS: PCP Family Medicine; Referring Provider Obstetrics & Gynecology; Visit Provider Obstetrics & Gynecology
DX: Z51.81 Encounter for therapeutic drug level monitoring (principal); Z79.890 Hormone replacement therapy; E29.1 Testicular hypofunction
CPT/HCPCS: 36415; 84402; 84403